=== PATIENT | male | born 1940 | race Caucasian/White ===

== ENCOUNTER 2021-05-28 15:22 | Inpatient (IN) | payer OTHER ==
--- OUTSIDE RECORDS SUMMARY | 2021-05-28 15:25 | XMS REPORT | Continuity of Care Document ---
:1940 Author Organization [facility] t Address [address] [place] [address] Care Team Providers Name Role Phone REMIGIO Attending Clinician Unavailable MD REMIGIO O. Attending Clinician Unavailable Attar Attending Clinician ATTAR Attending Clinician Unavailable Pob, Lab Main Attending Clinician Unavailable 2, Lab Attending Clinician Unavailable Doctor Unassigned, Name Attending Clinician Unavailable REMIGIO Admitting Clinician Unavailable MD REMIGIO O. Admitting Clinician Unavailable Payers Payer Name Policy Type Policy Number Effective Date Expiration Date Coni alcala [employer] MEDICARE [id number] 2016 COMPLETE 00:00:00 Problems This patient has no known problems. Allergies, Adverse Reactions, Alerts Allergy Allergy Status Severity Reaction(s) Onset Inactive Treating Comm ents Source Name Type Date Date Clinician NO KNOWN Drug Active Univers ALLERGIE Class ity of [facility] Social History Social Habit Start Date Stop Date Quantity Comments Source [facility] to [facility]2 [facility] sure [facility] Smoking Status Start Date Stop Date Source Unknown if ever smoked [facility] Medications This patient has no known medications. Procedures Procedure Date / Time Performed Performing Clinician Latonya e CT ABDOMEN WO 2020-03-18 21:29:29 Attscar [place] [facility] [place] CONTRAST [facility] Branch BASIC METABOLIC PANEL 2020-03-14 15:16:00 Pako [facility] (NA, K, CL, CO2, Medical Branch GLUCOSE, BUN, CREATININE, CA) N-TERMINAL PRO-BNP 2020-03-14 15:16:00 Pako [facility] PHYSICIAN ORDERS 2020-03-14 05:01:00 Doctor Unassigned, No Unive [facility] Branch PHYSICIAN ORDERS 2020-02-21 05:01:00 Doctor Unassigned, No Unive [facility] [place] Name Medical Branch Encounters Start End Encounter Admission Attending Care Care Encounter Source Date/Time Date/Time Type Type Clinicians Facility Department ID 2020-04-15 2020-04-28 Inpatient REMIGIO [facility] [id number] [address] [place] 00:00:00 00:00:00 LU 348 Method i 2020-03-20 2020-04-03 Inpatient REMIGIO [facility] [id number] [address] [place] 00:00:00 00:00:00 LU 676 Method i 2020-03-18 2020-03-18 Hospital Attar, [facility] [id number] Univers 15:13:38 23:59:00 Encounter Katie Dillard [id number] [id number] [id number] [address] 2020-03-18 2020-03-18 Outpatient R ATTAR, [facility] [id number] Univers 16:30:00 16:30:00 KATIE [id number] ity o f [facility] 2020-03-18 2020-03-18 Director Of Career Resources Pob, Adc Lab Main [facility] 1.2.8 40.114 [id number] Univers 15:03:59 15:18:59 Visit AttarKatie [id number] [id number] [phone] N[place] dical nal [address] [facility] 2020-03-18 2020-03-18 Outpatient R ATTAR, [facility] [id number] Univers 00:00:00 00:00:00 KATIE ity o f [facility] 2020-03-14 2020-03-14 Director Of Career Resources 2, Adc Lab [facility] [id number] Univers 10:07:56 10:22:56 Visit AttarKatie [id number] [facility] [id number] [phone] Nv dical nal 353 [facility] 2020-03-14 2020-03-[address] [facility] [id number] Univers 10:00:00 10:00:00 [id number] ity of [facility] 2020-03-14 2020-03-14 Outpatient R ATTAR, [facility] [id number] Univers 10:00:00 10:00:00 [facility] 2020-03-14 2020-03-14 Orders Doctor JORDAN [id number] Univers 00:00:00 00:00:00 Only Unassigned, HEATHER [id number] ity of [place] [facility] [id number] [place] [phone] [address] 2020-02-28 2020-02-28 Director Of Career Resources Pob, Adc Lab Main [facility] 1.2.8 40.114 [id number] Univers 14:45:58 15:00:58 Visit AttKatie abbott [id number] [id number] [phone] Nv dical nal [address] [place] [address] 2020-02-28 2020-02-[address] [facility] [id number] Univers 14:45:00 14:45:00 ity of [facility] 2020-02-28 2020-02-28 Outpatient R ATTAR, [facility] [id number] Univers 14:45:00 14:45:00 [facility] 2020-02-21 2020-02-21 Director Of Career Resources 2, Adc Lab GAM[facility] 1.2.840.114 [id number] Univers 14:47:55 15:02:55 Visit AttKatie abbott [id number] [id number] [phone] Nv dical nal [address] [place] [address] 2020-02-21 2020-02-21 Outpatient R ATTAR, [facility] [id number] Univers 15:00:00 15:00:00 KATIE ity o f [facility] 2020-02-21 2020-02-21 Orders Doctor ORTEGA 1.2.840.114 [id number] Univers 00:00:00 00:00:00 Only Unassigned, HEATHER [id number] ity of [place] [facility] [id number] [place] [phone] [facility] 009 Branch Results Test Description Test Time Test Comments Results Result Comments Source SARS-CoV-2 (COVID-19) RNA [Presence] in Respiratory sp ecimen by 2020-04-16 03:52:53 REGINA with probe detection Test Item Value Reference Range Interpretation Comme nts SARS-CoV-2 (COVID-19) RNA [Presence] in Respiratory Not detected No t-Detected specimen by REGINA with probe detection (test code = 86453-7) SARS-CoV-2 (COVID-19) RNA [Presence] in Respiratory specimen by REGINA with probe [id number] 00:06:57 Test Item Value Reference Range Interpretation Comments SARS-CoV-2 (COVID-19) RNA Not detected Not-Detected [Presence] in Respiratory specimen by REGINA with probe detection (test code = 97716-2) CT ABDOMEN WO [id number] 21:40:19CT Abdomen without contrast. CLINICAL HISTORY: Ascites. TECHNIQUE: Multidetector helical CT acquisition was obtained from the lungbases to the level of the iliac crests without oral and IV contrast. ?Theimages were reviewed in lung, bone, and soft tissue windows. FINDINGS: ?Absence of intravenous contrast limits evaluation of the solidorgans. Evaluation of the bowel is also limited by lack of oral contrast.Comparison is made with MRI study dated 04/05/2017. Lower lungs: Small bilateral pleural effusion as well as pleuralthickening, chronic pulmonary fibrosis and congestion in the right lowerlung. Moderate cardiomegaly. Short sliding hiatal hernia. No pericardialeffusion. Liver, Gallbladder and Spleen: The liver is approximately 15.2 cm in lengthand spleen is approximately 11.3 x 4.6 cm. Gallstones are seen without anyCT signs of acute cholecystitis. Peritoneum: Small amount of free fluid noted surrounding the liver, spleenand in both paracolic gutters. No lymphadenopathy. Pancreas and Adrenals:?Unremarkable pancreas and right adrenal gland. Leftadrenal gland hypertrophy noted. Kidneys and Ureters: Calcifications are seen both right and left renalartery branches. No visible calculi in the renal collecting systems. ?Nohydroureter or hydronephrosis. 3.2 cm cyst at the upper pole of the leftkidney, 1.5 cm cyst in the interpolar cortex of left kidney and 10 mm cystalong the lateral surface of the left kidney noted. 2 cysts are also seenin the lower pole of the right kidney, 12 mm or smaller insize. There isanother 14 mm Bosniak type II cystic lesion noted in the lower pole of theright kidney. Vessels: Advanced atherosclerosis, large abdominal aortic aneurysm withdirect intra-aortic stent extending from the aorta into common iliacarteries. Retroperitoneum: No abnormal fluid or lymphadenopathy. Bowel: Visualized large bowel loops showed diverticular disease without anyacute changes.Radiopaque material in the gastric chamber could be recently ingestedmedication. Radiopaque densities are also seen in the large bowel whichcould be residual contrast medium from prior CT studies done at an outs idefacility. Bones: Lumbar levoscoliosis with multilevel degenerative disc disease andfacet arthritis. Soft tissues: Fat-containing 2 cm size supraumbilical midline abdominalwall hernia without any apparent complications. CONCLUSION: 1. Small amount of ascites noted surrounding the liver, spleen, in theparacolic gutters with minimal bilateral pleural effusion and chronicbilateral pleural disease as well as pulmonary disease. The situs could bedue to liver disease and/or cardiac disease.2. Moderate cardiomegaly.3. Short sliding hiatal hernia.4. S/P AAA repair with intra-aortic stent.5. Diverticulosis of visualized segments of large bowel without any acutechanges.6. Gallstones without any CT signs of acute cholecystitis. [facility], Radiant Results Inft User - 03/18/2020 4:41 PM CDTCT Abdomen without contrast.CLINICAL HISTORY: Ascites.TECHNIQUE: Multidetector helical CT acquisition was obtained from the lungbases to the level of the iliac crests without oral and IV contrast. Theimages were reviewed in lung, bone, and soft tissue windows.FINDINGS: Absence of intravenous contrast limits evaluation of the solidorgans. Evaluation of the bowel is also limited by lack of oral contrast.Comparison is made with MRI study dated 04/05/2017. Lower lungs: Small bilateral pleural effusion as well as pleuralthickening, chronic pulmonary fibrosis and congestion in the right lowerlung. Moderate cardiomegaly.Short sliding hiatal hernia. No pericardialeffusion.Liver, Gallbladder and Spleen: The liver is approximately 15.2 cm in lengthand spleen is approximately 11.3 x 4.6 cm. Gallstones are seen without anyCT signs of acute cholecystitis.Peritoneum: Small amount of free fluid noted surrounding the liver, spleenand in both paracolic gutters. No lymphadenopathy.Pancreas and Adrenals: Unremarkable pancreas and right adrenal gland. Leftadrenal gland hypertrophy noted.Kidneys and Ureters: Calcifications are seen both right and left renalartery branches. No visible calculi in the renal collecting systems. Nohydroureter or hydronephrosis. 3.2 cm cyst at the upper pole of the leftkidney, 1.5 cm cyst in the interpolar cortex of left kidney and 10 mm cystalong the lateral surface of the left kidney noted. 2 cysts are also seenin the lower pole of the right kidney, 12 mm or smaller in size. There isanother 14mm Bosniak type II cystic lesion noted in the lower pole of theright kidney.Vessels: Advanced atheros clerosis, large abdominal aortic aneurysm withdirect intra-aortic stent extending from the aorta into common iliacarteries.Retroperitoneum: No abnormal fluid or lymphadenopathy.Bowel: Visualized large bowel loops showed diverticular disease without anyacute changes.Radiopaque material in the gastric chamber could be recently ingestedmedication. Radiopaque densities are also seen in the large bowel whichcould be residual contrast medium from prior CT studies done at an outsidefacility.Bones: Lumbar levoscoliosis with multilevel degenerative disc disease andfacet arthritis.Soft tissues: Fat-containing 2 cm size supraumbilical midline abdominalwall hernia without any apparent complications.CONCLUSION:1. Small amount of ascites noted surrounding the liver, spleen, in theparacolic gutters with minimalbilateral pleural effusion and chronicbilateral pleural disease as well as pulmonary disease. The situs could bedue to liver disease and/or cardiac disease.2. Moderate cardiomegaly.3. Short sliding hiatal hernia.4. S/P AAA repair with intra-aortic stent.5. Diverticulosis of visualized segments of large bowel without any acutechanges.6. Gallstones without any CT signs of acute cholecystitis.[facility] [id number] 17:35:00 Test Item Value Reference Range Interpretation Comments NT-proBNP (test code 85913 pg/mL See_Comment H [Autom ated = [id number]) message] The system which generated this result transmitted reference range : <=450. The reference range was not used to interpret this result as normal/abnormal . NICOLE (test code = NICOLE) Biotin has been reported to cause a negative bias, interpret results relative to patient's use of biotin. Lab Interpretation Abnormal (test code = 50602-9) [facility] METABOLIC PANEL (NA, K, CL, CO2, GLUCOSE, BUN, CREATININE, CA)2020-03-14 17:28:00 Test Item Value Reference Range Interpretation Comments NA (test code = 136 mmol/L 135-145 1587259202) K (test code = 4.7 mmol/L 3.5-5 3605412653) CL (test code = 99 mmol/L 98-108 8984428874) CO2 TOTAL (test code = 27 mmol/L 23-31 3725241928) AGAP (test code = 2-16 5580729639) BUN (test code = 54 mg/dL 7-23 H 6656681004) GLUCOSE (test code = 95 mg/dL 70-110 2893662427) CREATININE (test code = 2.03 mg/dL 0.6-1.25 H 0976432628) CALCIUM (test code = 9.0 mg/dL 8.6-10.6 8054911244) eGFR Calculation mL/min/1.73m2 (Non-) (test code = 3263834777) eGFR Calculation mL/min/1.73m2 () (test code = 4122342881) NICOLE (test code = NICOLE) Association of Glomerular Filtration Rate (GFR) and Staging of Kidney Disease* + --+ --+ ------+| GFR (mL/min/1.73 m2) ?| With Kidney Damage ?| ?Without Kidney Damage+ --------+ --------+ +| ?>90 ?| ?Stage one ?| ? Normal ?+ ---+ ---+ -------+| ?60-89 ?| ?Stage two ?| ? Decreased GFR ? + --+ --+ ------+| ?30-59 ?| ?Stage three ?| ? Stage three ? + --+ --+ ------+| ?15-29 ?| ?Stage four ? | ? Stage four ?+ ---+ ---+ -------+| ?<15 (or dialysis) ? ?| ?Stage five ? | ? Stage five ?+ ---+ ---+ -------+ *Each stage assumes the associated GFR level has been in effect for at least three months. ?Stages 1 to 5, with or without kidney disease, indicate chronic kidney disease. Notes: Determination of stages one and two (with eGFR >59mL/min/1.73 m2) requires estimation of kidney damage for at least three months as defined by structural or functional abnormalities of the kidney, manifested by either:Pathological abnormalities or Markers of kidney damage (including abnormalities in the composition of the blood or urine or abnormalities in imaging tests). Lab Interpretation Abnormal (test code = 99901-7) [facility]"
[2021-05-28] MEDS ORDERED: FENTANYL CITR 100 MCG/2 ML ONE (15:46)
[2021-05-28] MEDS ORDERED: ONDANSETRON 4 MG/2 ML VIAL ONE (15:47)
[2021-05-28 15:56] LABS: Absolute Lymphocytes (CBC) 1.1 K/uL (0.7-4.9); Lymphocytes % 15.8 % (15.3-44.8); MPV 8.3 fL (7.6-11.3); RBC Red Blood Cell Count 2.69 M/uL (4.33-5.43)
[2021-05-28 16:00] LABS: Protime INR 1.25
[2021-05-28 16:23] LABS: Albumin 2.1 g/dL (3.4-5.0); Bilirubin Direct 0.4 mg/dL (0-0.2); Bilirubin Total 0.8 mg/dL (0.2-1.0); Magnesium 2.8 mg/dL (1.8-2.4); Potassium 3.7 mmol/L (3.5-5.1); Protein, Total 6.9 g/dL (6.4-8.2); Troponin (Emerg Dept Use Only) 0.31 ng/mL (0.0-0.045)
--- NOTE | 2021-05-28 16:30 | RAD REPORT ---
EXAM DESCRIPTION: RAD - Chest Single View - 05/28/2021 3:59 pm CLINICAL HISTORY: CHEST PAIN COMPARISON: Portable chest October 2014 TECHNIQUE: AP portable chest image was obtained 05/28/2021 3:59 pm . FINDINGS: Interstitial markings are prominent throughout the lung cox increased from the prior st udy. This is in part due to shallow inspiration on the current examination. Trachea is midline. Head otomy wires are in place. Bilateral costophrenic angle blunting is present which may be portable jayson fact rather than significant pleural fluid. There is been substantial increase in the cardiac silhouette from prior imaging. Upper lobe vasculat ure is prominent. Size increase is most pronounced along the right side. This may be true chamber enl argement and/ or pericardial effusion. Mass lesion mimicking heart enlargement cannot be excluded. No pneumothorax. No acute bony abnormality seen. No acute aortic findings suspected. IMPRESSION: Cardiac silhouette is substantially larger than 2015 and there is increase in vasculatur e and lung markings. Pattern suggests a CHF/volume overload process. Substantial change in cardiac silhouette could be from chamber enlargement, pericardial effusion with mass lesion as a cause for the right-sided enlargement lesser in likelihood but not excluded.
[2021-05-28 16:51] LABS: SARS-COV-2 RT PCR NEGATIVE (NEGATIVE)
[2021-05-28] MEDS ORDERED: MORPHINE 2 MG/ML SYR ONE ×2 (16:59→22:23)
--- NOTE | 2021-05-28 17:16 | EDPHYS ---
Physician Documentation [facility] Name: Bhavin Mckeon Sr Age: 80 yrs Sex: Male : 1940 Arrival Date: 05/28/2021 Time: 15:23 Bed 15 Private MD: ED Physician Twila Hernandez HPI: 05/28 15:36 This 80 yrs old Male presents to ER via Unassigned with complaints of Chest Pain > 30 cp y/o. 15:36 The patient or guardian reports chest pain that is located primarily in the anterior cp chest wall. Onset: today. The chest pain is described as sharp. Duration: The patient or guardian reports a single episode, that is still ongoing. 15:36 Associated signs and symptoms: Pertinent positives: abdominal pain, cough, shortness of cp breath. 15:36 Family member reports patient has been taking Pepto for stomach pain and that patient cp is only taking aspirin and no blood thinner due to developing hematoma in the past as complication of taking blood thinner for chronic a-fib. Historical: - Allergies: 16:08 No Known Allergies; eo2 - Home Meds: 18:37 symbicort 160-4.5mcg/act inh twice a day [Active]; albuterol sulfate 90 mcg/actuation eo2 Inhl aebs 1 puff every 4 hours [Active]; levetiracetam 500 mg oral tab 1 tab 2 times per day [Active]; sildenafil 20mg oral 1 tab three times a day [Active]; allopurinol 300 mg Oral tab 1 tab once daily [Active]; torsemide 20 mg oral tab 2 tabs twice a day [Active]; pantoprazole 40 mg oral TbEC 1 tab 2 times per day [Active]; carvedilol 3.125 mg oral tab 1 tab 2 times per day [Active]; - PMHx: 16:08 Congestive heart failure; Chronic obstructive lung disease; Myocardial infarction; eo2 Pneumonia; Right hip hematoma; 18:37 Seizure; Gout; eo2 - Immunization history:: Adult Immunizations not up to date, Client reports having NOT received the Covid vaccine. - Social history:: Smoking status: Patient/guardian denies using tobacco, Patient/guardian denies using alcohol, street drugs. ROS: 15:40 Constitutional: Negative for body aches, chills, fever, poor PO intake. cp 15:40 Eyes: Negative for injury, pain, redness, and discharge. cp 15:40 ENT: Negative for ear pain, sore throat, difficulty swallowing, difficulty handling secretions. 15:40 Cardiovascular: Positive for chest pain. 15:40 Respiratory: Positive for cough, shortness of breath, at rest. Negative for wheezing. 15:40 Abdomen/GI: Negative for abdominal pain, vomiting, diarrhea, constipation. 15:40 Back: Negative for radiated pain. 15:40 Neuro: Negative for altered mental status, headache, syncope, weakness. 15:40 All other systems are negative. Exam: 15:36 ECG was reviewed by the Attending Physician. cp 15:43 Constitutional: The patient appears alert, awake, non-diaphoretic, non-toxic, well cp developed, frail, in obvious distress, mildly distressed. 15:43 Head/Face: Normocephalic, atraumatic. cp 15:43 Eyes: Periorbital structures: appear normal, Pupils: equal, round, and reactive to light and accomodation, Extraocular movements: intact throughout, Conjunctiva: normal, no exudate, no injection, Sclera: no appreciated abnormality, Lids and lashes: appear normal, bilaterally. 15:43 ENT: External ear(s): are unremarkable, Nose: is normal, Mouth: Lips: dry, Oral mucosa: dry, Posterior pharynx: Airway: no evidence of obstruction, patent. 15:43 Neck: ROM/movement: is normal, is supple, without pain, no range of motions limitations. 15:43 Chest/axilla: Inspection: normal. 15:43 Cardiovascular: Rate: tachycardic, Rhythm: irregular, Edema: is not appreciated, JVD: is not appreciated. 15:43 Respiratory: mild respiratory distress is noted, Respirations: intercostal retractions, are absent, shallow respirations, that is mild, Breath sounds: decreased breath sounds, that are mild, diffuse, stridor, is not appreciated, wheezing: is not appreciated. 15:43 Abdomen/GI: Inspection: abdomen appears normal, Bowel sounds: active, all quadrants, Palpation: soft, mild abdominal tenderness, in the epigastric area and left upper quadrant. 15:43 Skin: cellulitis, is not appreciated, no rash present. 15:43 Neuro: Orientation: to person, place \\T\\ time. Mentation: able to follow commands, slow to respond. 16:00 : Rectal exam: Stool: brown, soft, Guaiac testing: results were positive for occult cp blood. Vital Signs: 15:30 BP 112 / 81; Pulse 98; Resp 23; Temp 97.3; Pulse Ox 100% on 6 lpm NC; Weight 63.5 kg; eo2 Height 5 ft. 6 in. (167.64 cm); Pain 7/10; 16:08 BP 122 / 92; Pulse 104; Resp 24; Pulse Ox 100% ; eo2 16:58 Pain 7/10; eo2 17:00 BP 115 / 64; Pulse 108; Resp 22; Pulse Ox 100% ; Pain 6/10; eo2 17:42 Pain 6/10; eo2 18:00 BP 123 / 98; Pulse 115; Resp 24; Pulse Ox 100% ; eo2 21:05 BP 111 / 80; Pulse 95; Resp 18; Pulse Ox 96% on NC; ic1 15:30 Body Mass Index 22.60 (63.50 kg, 167.64 cm) eo2 MDM: 15:30 Patient medically screened. cp 16:00 Differential diagnosis: abnormal EKG, acute myocardial infarction, congestive heart cp failure gastritis, gastroesophageal reflux disease (GERD), peptic ulcer disease, pericarditis, pleurisy, pneumonia, pneumothorax, stable angina, unstable angina, gastric bleed. 17:00 Data reviewed: vital signs, nurses notes, lab test result(s), EKG, radiologic studies, cp plain films. 17:00 Test interpretation: by ED physician or midlevel provider: ECG, plain radiologic cp studies. Physician consultation: Jerry Goodman DO was contacted at 16:55, regarding admission, to the telemetry unit. patient's condition, and will see patient in ED, shortly. 05/28 15:30 Order name: Basic Metabolic Panel cp 05/28 15:30 Order name: CBC with Diff cp 05/28 15:30 Order name: LFT's; Complete Time: 16:55 cp 05/28 16:29 Interpretation: Normal except: ALK 146; BILID 0.4; ALB 2.1; GLOB 4.8; A/G 0.4. cp 05/28 15:30 Order name: Magnesium; Complete Time: 16:55 cp 05/28 15:30 Order name: NT PRO-BNP; Complete Time: 16:55 cp 05/28 15:30 Order name: PT-INR; Complete Time: 16:19 cp 05/28 15:30 Order name: Troponin (emerg Dept Use Only); Complete Time: 16:55 cp 05/28 16:29 Interpretation: Abnormal: TROPED 0.31. cp 05/28 15:30 Order name: COVID-19/FLU A+B (Document "Date of Onset" if Symptomatic); Complete Time: cp 16:55 05/28 15:30 Order name: Urine Microscopic Only cp 05/28 15:30 Order name: Lipase; Complete Time: 16:55 cp 05/28 15:31 Order name: Basic Metabolic Panel; Complete Time: 16:55 EDAL 05/28 16:30 Interpretation: Normal except: CL 95; CO2 37; GLUC 191; BUN 48; CRE 1.57; GFR 43. cp 05/28 15:31 Order name: CBC with Automated Diff; Complete Time: 19:05 [facility] 05/28 16:19 Interpretation: Normal except: RBC 2.69; HGB 8.5; HCT 27.0; MCV 100.2; MCHC 31.6; RDW cp 20.6; LAYLA% 73.8. 05/28 17:50 Order name: CBC Smear Scan; Complete Time: 19:05 EDAL 05/28 20:47 Order name: Urine Dipstick-Ancillary EDAL 05/28 15:30 Order name: XRAY Chest (1 view); Complete Time: 16:37 cp 05/28 15:30 Order name: EKG; Complete Time: 15:31 cp 05/28 15:30 Order name: Cardiac monitoring; Complete Time: 15:58 cp 05/28 15:30 Order name: EKG - Nurse/Tech; Complete Time: 15:58 cp 05/28 15:30 Order name: IV Saline Lock; Complete Time: 15:58 cp 05/28 15:30 Order name: Labs collected and sent; Complete Time: 15:58 cp 05/28 15:30 Order name: O2 Per Protocol; Complete Time: 15:58 cp 05/28 15:30 Order name: O2 Sat Monitoring; Complete Time: 15:58 cp 05/28 15:30 Order name: Urine Dipstick-Ancillary (obtain specimen); Complete Time: 20:47 cp 05/28 17:42 Order name: Social Service Consult EDMS EC:36 Rate is 124 beats/min. Rhythm is irregular. QRS interval is normal. QT interval is cp normal. Interpreted by me. Reviewed by me. Administered Medications: 15:58 Drug: fentaNYL (PF) 25 mcg Route: IVP; Site: right antecubital; eo2 16:58 Follow up: Pain 7/10 Adult; Response: Pain is unchanged, physician notified eo2 15:58 Drug: Zofran (Ondansetron) 4 mg Route: IVP; Site: right antecubital; eo2 16:58 Follow up: Response: No adverse reaction eo2 16:59 Drug: morphine 2 mg Route: IVP; Site: right antecubital; eo2 17:42 Follow up: Pain 6/10 Adult; Response: Pain is decreased eo2 17:42 Drug: Lasix (furosemide) 40 mg Route: IVP; Site: right antecubital; eo2 18:29 Follow up: Response: No adverse reaction eo2 18:37 Drug: ProTONIX (pantoprazole) 40 mg Route: IVP; Site: right antecubital; eo2 18:56 Follow up: Response: No adverse reaction eo2 21:35 Drug: carvedilol 3.125 mg Route: PO; ic1 22:26 Drug: morphine 2 mg Route: IVP; Rate: bolus; Infused Over: 2 mins; Site: right forearm; ic1 Disposition Summary: 05/28/21 17:15 Hospitalization Ordered Hospitalization Status: Inpatient Admission cp Provider: Jerry Goodman cp [facility] cp Condition: Stable cp Problem: new cp Symptoms: have improved cp Bed/Room Type: Standard cp Room Assignment: 201(05/29/21 01:28) cg Diagnosis - Unspecified combined systolic (congestive) and diastolic (congestive) heart failure cp - Subsequent non-ST elevation (NSTEMI) myocardial infarction cp Forms: - Medication Reconciliation Form cp - SBAR form cp Signatures: Dispatcher [employer] EDMS Jose Wayne PA PA cp Garcia, Cindy, RN RN cg Owoade, Eunice, RN RN eo2 Nataliia Plaza RN RN ic1 Corrections: (The following items were deleted from the chart) 16:09 16:08 PMHx: None; eo2 eo2 16:08 PMHx: Seizure; eo2 eo2 05/29 01:28 05/28 17:15 cp cg 05/30 01:19 05/28 15:43 Abdomen/GI: Inspection: abdomen appears normal, Bowel sounds: active, all cp quadrants, Palpation: abdomen is soft and non-tender, in all quadrants, cp
--- NOTE | 2021-05-28 17:16 | ER ---
Nurse's Notes [facility] Name: Bhavin Mckeon Sr Age: 80 yrs Sex: Male : 1940 Arrival Date: 05/28/2021 Time: 15:23 Bed 15 Private MD: Diagnosis: Unspecified combined systolic (congestive) and diastolic (congestive) heart failure;Subsequent non-ST elevation (NSTEMI) myocardial infarction Presentation: 05/28 15:23 Chief complaint: Patient states: chest pain that began this morning. Coronavirus ss screen: Client denies travel out of the [place] in the last 14 days. Ebola Screen: Patient denies exposure to infectious person. Patient denies travel to an Ebola-affected area in the 21 days before illness onset. Initial Sepsis Screen: Does the patient meet any 2 criteria? No. Patient's initial sepsis screen is negative. Does the patient have a suspected source of infection? No. Patient's initial sepsis screen is negative. Risk Assessment: Do you want to hurt yourself or someone else? Patient reports no desire to harm self or others. Onset of symptoms was May 28, 2021. 15:23 Method Of Arrival: EMS: [facility] ss 15:23 Acuity: JACI 3 ss Historical: - Allergies: 16:08 No Known Allergies; eo2 - Home Meds: 18:37 symbicort 160-4.5mcg/act inh twice a day [Active]; albuterol sulfate 90 mcg/actuation eo2 Inhl aebs 1 puff every 4 hours [Active]; levetiracetam 500 mg oral tab 1 tab 2 times per day [Active]; sildenafil 20mg oral 1 tab three times a day [Active]; allopurinol 300 mg Oral tab 1 tab once daily [Active]; torsemide 20 mg oral tab 2 tabs twice a day [Active]; pantoprazole 40 mg oral TbEC 1 tab 2 times per day [Active]; carvedilol 3.125 mg oral tab 1 tab 2 times per day [Active]; - PMHx: 16:08 Congestive heart failure; Chronic obstructive lung disease; Myocardial infarction; eo2 Pneumonia; Right hip hematoma; 18:37 Seizure; Gout; eo2 - Immunization history:: Adult Immunizations not up to date, Client reports having NOT received the Covid vaccine. - Social history:: Smoking status: Patient/guardian denies using tobacco, Patient/guardian denies using alcohol, street drugs. Screenin:08 Abuse screen: Denies threats or abuse. Denies injuries from another. Nutritional eo2 screening: No deficits noted. Tuberculosis screening: No symptoms or risk factors identified. Fall Risk Ambulatory Aid- None/Bed Rest/Nurse Assist (0 pts). Gait- Impaired (20 pts.). Assessment: 16:04 General: Appears uncomfortable, unkempt, Behavior is cooperative. Pain: Complains of eo2 pain in mid chest pain Pain does not radiate. Pain began this morning per at bedside. Neuro: Level of Consciousness is awake, alert, obeys commands, Oriented to person, place, situation. Cardiovascular: Reports chest pain, shortness of breath, Patient's skin is warm and dry. Rhythm is atrial fibrillation Chest pain. Respiratory: Reports shortness of breath labored breathing chronic Airway is patent Respiratory effort is labored, Respiratory pattern is symmetrical, Breath sounds with rhonchi. : Parent/caregiver report the patient having continent of urine per , does BM in diaper due to inability to move. Musculoskeletal: Parent/caregiver report the patient having weakness in RLE due to right hip hematoma. 18:43 Reassessment: Pt reporting heart burn, Jose UMANZOR made aware. eo2 22:28 [facility]ass[facility]: [facility]. ic1 05/29 03:25 Reassessment: Pt transported to unit via stretcher. Report called to receiving nurse. ic1 Vital Signs: 05/28 15:30 BP 112 / 81; Pulse 98; Resp 23; Temp 97.3; Pulse Ox 100% on 6 lpm NC; Weight 63.5 kg; eo2 Height 5 ft. 6 in. (167.64 cm); Pain 7/10; 16:08 BP 122 / 92; Pulse 104; Resp 24; Pulse Ox 100% ; eo2 16:58 Pain 7/10; eo2 17:00 BP 115 / 64; Pulse 108; Resp 22; Pulse Ox 100% ; Pain 6/10; eo2 17:42 Pain 6/10; eo2 18:00 BP 123 / 98; Pulse 115; Resp 24; Pulse Ox 100% ; eo2 21:05 BP 111 / 80; Pulse 95; Resp 18; Pulse Ox 96% on NC; ic1 15:30 Body Mass Index 22.60 (63.50 kg, 167.64 cm) eo2 Vitals: 16:08 Cardiac Rhythm Assessment Irregular Atrial fibrillation. eo2 ED Course: 15:23 Patient arrived in ED. ss 15:28 Patient has correct armband on for positive identification. Placed in gown. Bed in low mh5 position. Call light in reach. Side rails up X2. Warm blanket given. configuration management specialist on. Pulse ox on. NIBP on. 15:29 Jose Wayne PA is PHCP. cp 15:29 Twila Hernandez MD is Attending Physician. cp 15:38 Laure Simmons, PETER is Primary Nurse. eo2 15:53 Triage completed. ss 15:59 XRAY Chest (1 view) In Process Unspecified. EDMS 15:59 COVID-19/FLU A+B (Document "Date of Onset" if Symptomatic) Sent. eo2 16:08 No provider procedures requiring assistance completed. Inserted saline lock: 20 gauge eo2 in right antecubital area, using aseptic technique. Oxygen administration via nasal cannula \\T\\ 5L/min. 16:11 Arm band placed on. eo2 17:14 Jerry Goodman DO is Hospitalizing Provider. cp 19:12 Report given to Nataliia GREEN. eo2 20:47 Urine Microscopic Only Sent. ic1 Administered Medications: 15:58 Drug: fentaNYL (PF) 25 mcg Route: IVP; Site: right antecubital; eo2 16:58 Follow up: Pain 7/10 Adult; Response: Pain is unchanged, physician notified eo2 15:58 Drug: Zofran (Ondansetron) 4 mg Route: IVP; Site: right antecubital; eo2 16:58 Follow up: Response: No adverse reaction eo2 16:59 Drug: morphine 2 mg Route: IVP; Site: right antecubital; eo2 17:42 Follow up: Pain 6/10 Adult; Response: Pain is decreased eo2 17:42 Drug: Lasix (furosemide) 40 mg Route: IVP; Site: right antecubital; eo2 18:29 Follow up: Response: No adverse reaction eo2 18:37 Drug: ProTONIX (pantoprazole) 40 mg Route: IVP; Site: right antecubital; eo2 18:56 Follow up: Response: No adverse reaction eo2 21:35 Drug: carvedilol 3.125 mg Route: PO; ic1 22:26 Drug: morphine 2 mg Route: IVP; Rate: bolus; Infused Over: 2 mins; Site: right forearm; ic1 Outcome: 17:15 Decision to Hospitalize by Provider. sergei 05/29 03:50 Patient left the ED. ic1 Signatures: Dispatcher [employer] EDLillian Salgado RN RN Jose Wayne PA PA Arielle García [facility] Laure Simmons RN RN eo2 Nataliia Plaza RN RN ic1 Corrections: (The following items were deleted from the chart) 05/28 16:09 16:08 PMHx: None; eo2 eo2 16:09 16:08 PMHx: Seizure; eo2 eo2
[2021-05-28] MEDS ORDERED: FUROSEMIDE 40 MG/4 ML VIAL ONE (17:30)
--- NOTE | 2021-05-28 17:39 | P.HP ---
Certification for Inpatient Patient admitted to: Inpatient With expected LOS: >2 Midnights Patient will require the following post-hospital care: Home Health Services Practitioner: I am a practitioner with admitting privileges, knowledge of patient current condition, hospital course, and medical plan of care. Services: Services provided to patient in accordance with Admission requirements found in Title 42 Section 412.3 of the Code of Federal Regulations Patient History Date of Service: 05/28/21 Primary Care Provider: None; Cardiology-Dr. Min Reason for admission: chest pain and shortness of breath History of Present Illness: 80-year-old male with history of chronic atrial fibrillation not on chronic anticoagulation therapy, diastolic CHF, COPD on chronic oxygen, peripheral vascular disease, CAD with prior CABG, hypertension, seizure disorder, history of CVA, history of peripheral vascular disease and carotid arterial disease. Patient presented with chest pain and shortness of breath that started this morning. Chest pain was mainly to the center of the chest. He rated the pain about a 10 out of 10. Shortness of breath was also noted. Patient uses home oxygen. He thought this was more GI related he took some Pepto-Bismol. Chest pain persisted and shortness of breath persisted. Denies any fever, chills. Came to the ER for further evaluation. In the ER patient was evaluated. Hemoglobin 8.5, white count 6.7. Sodium 140, potassium 3.7. BUN of 48, creatinine 1.53 with GFR 43. Glucose 191. Troponin 0.31. BNP elevated. Chest x-ray shows COPD changes. Patient given IV Lasix in the emergency room. Patient admitted for further evaluation and treatment. Allergies clopidogrel bisulfate [From Plavix] Allergy (Verified 10/29/14 09:58) Unknown Home medications list reviewed: Yes Home Medications: Aspirin [Low Dose Aspirin EC] 81 mg PO DAILY 10/28/14 Furosemide [Lasix*] 40 mg PO DAILY 10/28/14 Levetiracetam 1,000 mg PO Q12HR 10/28/14 Omeprazole [Prilosec] 40 mg PO DAILY 10/28/14 Pravastatin [Pravachol*] 80 mg PO DAILY 10/28/14 allopurinoL [Zyloprim*] 300 mg PO DAILY 10/28/14 carvediloL [Coreg*] 12.5 mg PO BIDWM 10/28/14 levoFLOXacin [Levaquin] 500 mg PO DAILY #7 tab 11/02/14 predniSONE [Deltasone*] 10 mg PO BID #20 tab 11/02/14 - Past Medical/Surgical History Diabetic: No -: History of CVA -: COPD on chronic oxygen -: Diastolic CHF -: Gout -: Hyperlipidemia -: Carotid arterial disease with prior surgery -: CAD with prior CABG -: Hyperlipidemia -: Hypertension -: GERD -: Peripheral vascular disease -: Seizure disorder -: CABG x2 vessel -: Spinal surgery -: Hernia repair -: Abdominal aortic aneurysm repair -: Bilateral carotid enterectomy Psychosocial/ Personal History: 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 Uses diapers - Family History Family History: Reviewed- Non-Contributory - Social History Smoking Status: Former smoker Alcohol use: No CD- Drugs: No Caffeine use: Yes Place of Residence: Home Review of Systems General: As per HPI Eyes: Unremarkable ENT: Unremarkable Respiratory: Shortness of Breath, SOB with Excertion, As per HPI Cardiovascular: Chest Pain, As per HPI Gastrointestinal: Unremarkable Genitourinary: Unremarkable Musculoskeletal: Unremarkable Integumentary: Unremarkable Neurological: Unremarkable Lymphatics: Unremarkable Physical Examination - Studies Laboratory Data (last 24 hrs) 05/28/21 15:42: PT 14.4 H, INR 1.25 05/28/21 15:42: WBC 6.70, Hgb 8.5 L, Hct 27.0 L, Plt Count 204 05/28/21 15:42: Sodium 140, Potassium 3.7, BUN 48 H, Creatinine 1.57 H, Glucose 191 H, Magnesium 2.8 H, Total Bilirubin 0.8, AST 16, ALT 16, Alkaline Phosphatase 146 H, Lipase 114 Assessment and Plan - Plan COVID: Negative Influenza: Negative Chest x-ray: COMPARISON: Portable chest October 2014 TECHNIQUE: AP portable chest image was obtained 05/28/2021 3:59 pm . FINDINGS: Interstitial markings are prominent throughout the lung cox increased from the prior study. This is in part due to shallow inspiration on the current examination. Trachea is midline. Sternotomy wires are in place. Bilateral costophrenic angle blunting is present which may be portable artifact rather than significant pleural fluid. There is been substantial increase in the cardiac silhouette from prior imaging. Upper lobe vasculature is prominent. Size increase is most pronounced along the right side. This may be true chamber enlargement and/ or pericardial effusion. Mass lesion mimicking heart enlargement cannot be excluded. No pneumothorax. No acute bony abnormality seen. No acute aortic findings suspected. IMPRESSION: Cardiac silhouette is substantially larger than 2015 and there is increase in vasculature and lung markings. Pattern suggests a CHF/volume overload process. Substantial change in cardiac silhouette could be from chamber enlargement, pericardial effusion with mass lesion as a cause for the right-sided enlargement lesser in likelihood but not excluded. Physical Exam: GENERAL: The patient is a well-developed, well-nourished, in no apparent distress. Alert and oriented x3. VITAL SIGNS: Reviewed HEENT: Head is normocephalic and atraumatic. Extraocular muscles are intact. Pupils are equal, round, and reactive to light and accommodation. Nares appeared normal. Mouth is well hydrated and without lesions. Mucous membranes are moist. NECK: Supple. No carotid bruits. No lymphadenopathy or thyromegaly. LUNGS: Decreased bilateral. Some wheezing. Currently on 4 L per nasal cannula HEART: A. fib rate controlled ABDOMEN: Soft, nontender, and nondistended. Positive bowel sounds. No hepatosplenomegaly was noted. EXTREMITIES: Muscle wasting to the upper and lower extremity. NEUROLOGIC: The patient is oriented to person, place and time. Strength and sensation are grossly intact. Face is symmetric. SKIN: Muscle wasting noted. Impression: Chest pain, shortness of breath with elevated troponin likely ischemic demand likely related to acute on chronic diastolic CHF and COPD exacerbation on chronic oxygen CAD with prior CABG Peripheral vascular disease/carotid arterial disease with prior carotid enterectomy Hyperlipidemia Hypertension Chronic atrial fibrillation not on chronic anticoagulation therapy GERD Seizure disorder History of CVA History of hematoma Anemia chronic disease Plan: Chest pain, shortness of breath with elevated troponin likely ischemic demand likely related to acute on chronic diastolic CHF and COPD exacerbation on chronic oxygen: Patient will be admitted for further evaluation and treatment. Troponin elevated likely ischemic demand from acute on chronic diastolic CHF and COPD exacerbation. We will continue to monitor telemetry and cardiac enzymes. Will consult cardiology for further recommendation. Will provide DVT prophylaxis Heparin for now. If cardiac enzymes continue to be elevated consider switching to heparin for [place] protocol. Will order echocardiogram. Recheck chest x-ray. Lasix 40 mg 3 times a day IV to be started. Patient takes torsemide 40 mg twice daily and Viagra 20 mg 3 times a day. May need to continue this at discharge. Continue COPD treatment including Solu-Medrol, Brovana, Xopenex and Atrovent. Await further recommendations from cardiology. CAD with prior CABG: Continue aspirin. Continue with above plan of care. Peripheral vascular disease/carotid arterial disease with prior carotid enterectomy: Continue aspirin. Hyperlipidemia: Patient takes pravastatin 80 mg daily. Continue statin medication. Will check fasting lipid panel. Hypertension: Continue carvedilol 3.25 mg 1 pill twice daily. Will monitor and adjust appropriately. Chronic atrial fibrillation not on chronic anticoagulation therapy: Continue aspirin. Patient not on chronic anticoagulation therapy due to history of hematomas in the past. We will continue with heparin DVT prophylaxis GERD: Continue Protonix Seizure disorder: Continue Keppra 500 mg 1 pill twice daily History of CVA: Continue aspirin and statin medication History of hematoma: Continue with above plan of care Anemia chronic disease: We will check iron and B12 studies. Maintain hemoglobin above 7.5. Code Status: Patient is DNR DVT prophylaxis: Heparin Advanced Care Planning-30 minutes: Home at discharge likely with home health and physical therapy. Discharge Plan: Home Plan to discharge in: 72 Hours - Advance Directives Does patient have a Living Will: No Does patient have a Durable POA for Healthcare: Yes - Code Status/Comfort Care Code Status Assessed: Yes (Patient is DNR) Time Spent Managing Pts Care (In Minutes): 55
[2021-05-28 17:49] LABS: Anisocytosis 1+; Blood Morphology Comment NOTED (NOT SEEN); Platelet Estimate ADEQ; White Blood Cell Scan OK (OK)
[2021-05-28] MEDS ORDERED: PANTOPRAZOLE 40 MG INJ ONE (18:35)
[2021-05-28 20:47] LABS: Urine Blood Trace-intact (Negative); Urine Glucose Negative (Negative); Urine Protein 2+ (Negative); Urine Specific Gravity 1.025 (1.005-1.030); Urine pH 5.5 (5.0-7.0)
[2021-05-28 21:02] LABS: Urine Bacteria >50 /HPF (NONE SEEN); Urine Mucus 1+ /HPF (NONE SEEN)
[2021-05-28] MEDS ORDERED: carvediloL 6.25 MG TAB ONE (21:31)
[2021-05-28 22:14] VITALS: BMI 22.4
[2021-05-29] MEDS: ASPIRIN EC 81 MG TAB PO SCH ×2 (03:47→10:30)
[2021-05-29] MEDS ORDERED: FUROSEMIDE 40 MG/4 ML VIAL IV SCH (03:47)
[2021-05-29] MEDS: carvediloL 3.125 MG TAB PO SCH ×2 (03:47→05:43)
[2021-05-29] MEDS ORDERED: LEVALBUTEROL 0.63 MG/3 ML NEB NEB PRN (03:47)
[2021-05-29] MEDS ORDERED: ONDANSETRON 4 MG/2 ML VIAL IV PRN (03:47)
[2021-05-29] MEDS: levETIRAcetam 500 MG TAB PO SCH ×2 (03:47→10:30)
[2021-05-29] MEDS ORDERED: ARFORMOTEROL TARTRATE 15 MCG/2 ML VIAL.NEB NEB SCH (03:47)
[2021-05-29] MEDS ORDERED: ATORVASTATIN 10 MG TAB PO SCH (03:47)
[2021-05-29] MEDS: METHYLPREDNISOLONE 40 MG INJ IV SCH ×2 (03:47→10:10)
[2021-05-29] MEDS: HEPARIN 5000 UNIT/ML 1 ML VIAL SQ SCH ×2 (03:47→10:30)
[2021-05-29] MEDS ORDERED: ACETAMINOPHEN 500 MG TAB PO PRN (03:47)
[2021-05-29] MEDS ORDERED: IPRATROPIUM BROM 0.5MG/2.5ML NEB PRN (03:47)
[2021-05-29 04:30] VITALS: O2SAT 98
--- NOTE | 2021-05-29 05:44 | P.PN ---
Subjective Date of Service: 05/29/21 Primary Care Provider: None; Cardiology-Dr. Min Chief Complaint: chest pain and shortness of breath Subjective: Improving, Doing well Physical Examination - Vital Signs Temperature: 97.6 F Blood Pressure: 182/80 Pulse: 94 Respirations: 17 Pulse Ox (%): 94 - Studies Laboratory Data (last 24 hrs) 05/28/21 15:42: PT 14.4 H, INR 1.25 05/28/21 15:42: WBC 6.70, Hgb 8.5 L, Hct 27.0 L, Plt Count 204 05/28/21 15:42: Sodium 140, Potassium 3.7, BUN 48 H, Creatinine 1.57 H, Glucose 191 H, Magnesium 2.8 H, Total Bilirubin 0.8, AST 16, ALT 16, Alkaline Phosphatase 146 H, Lipase 114 Assessment & Plan Discharge Plan: Home Plan to discharge in: 24 Hours Physician Review Additional Text: COVID: Negative Influenza: Negative Chest x-ray: COMPARISON: Portable chest October 2014 TECHNIQUE: AP portable chest image was obtained 05/28/2021 3:59 pm . FINDINGS: Interstitial markings are prominent throughout the lung cox increased from the prior study. This is in part due to shallow inspiration on the current examination. Trachea is midline. Sternotomy wires are in place. Bilateral costophrenic angle blunting is present which may be portable artifact rather than significant pleural fluid. There is been substantial increase in the cardiac silhouette from prior imaging. Upper lobe vasculature is prominent. Size increase is most pronounced along the right side. This may be true chamber enlargement and/ or pericardial effusion. Mass lesion mimicking heart enlargement cannot be excluded. No pneumothorax. No acute bony abnormality seen. No acute aortic findings suspected. IMPRESSION: Cardiac silhouette is substantially larger than 2015 and there is increase in vasculature and lung markings. Pattern suggests a CHF/volume overload process. Substantial change in cardiac silhouette could be from chamber enlargement, pericardial effusion with mass lesion as a cause for the right-sided enlargement lesser in likelihood but not excluded. Follow up CXR: COMPARISON: Portable May 28, portable October 2014 TECHNIQUE: AP portable chest image was obtained 05/29/2021 5:07 am . FINDINGS: Lung volumes are reduced compared to the May 28 examination. Lung parenchymal opacification pattern is not clearly different. Bilateral costophrenic angle blunting is present in the patient likely has small bilateral pleural effusions. Large cardiac silhouette is again identified. Findings are not as prominent along the right heart border. This is possibly partial resolution of atelectasis. Findings are less concerning for a mass along the right heart border. This can be monitored as the patient continues to improve. Prominent upper lobe vasculature is still present. No pneumothorax. Sternotomy wires are in place. No acute bony abnormality seen. No acute aortic findings suspected. IMPRESSION: CHF/volume overload findings remain. Bilateral pleural effusions are present. Enlarged cardiac silhouette may be fractionally improved. Overall increased opacification along the right heart border can be monitored over the course of hospitalization. Current findings are less concerning for a mass. Physical Exam: GENERAL: The patient is a well-developed, well-nourished, in no apparent distress. Alert and oriented x3. VITAL SIGNS: Reviewed HEENT: Neck supple LUNGS: Better air movement bilateral. Currently on 3 L per nasal cannula HEART: A. fib rate controlled ABDOMEN: Soft, nontender, and nondistended. Positive bowel sounds. No hepatosplenomegaly was noted. EXTREMITIES: Muscle wasting to the upper and lower extremity. NEUROLOGIC: The patient is oriented to person, place and time. Strength and sensation are grossly intact. Face is symmetric. SKIN: Muscle wasting noted. Impression: Chest pain, shortness of breath with elevated troponin likely ischemic demand related to acute on chronic diastolic CHF, pulmonary hypertension, chronic pleural effusion, and COPD exacerbation on chronic oxygen CAD with prior CABG Peripheral vascular disease/carotid arterial disease with prior carotid enterectomy Hyperlipidemia Hypertension Chronic atrial fibrillation not on chronic anticoagulation therapy GERD Seizure disorder History of CVA History of hematoma Anemia chronic disease Plan: Chest pain, shortness of breath with elevated troponin likely ischemic demand related to acute on chronic diastolic CHF, pulmonary hypertension, chronic pleural effusion, and COPD exacerbation on chronic oxygen: Patient much improved. Patient doing well with IV diuretic therapy and Solu-Medrol. Case discussed with cardiology. No intervention required. Patient much improved. Patient normally uses 5 to 6 L per nasal cannula. Now down to 3 L per nasal cannula. We will plan for discharge today. Will increase his torsemide to 60 mg 1 pill twice daily. Continue prednisone taper. Continue with his medication for COPD and CHF. Continue home oxygen to maintain sats above 93%. Patient may continue with his Viagra 20 mg 1 pill 3 times a day. Recommend follow-up with pulmonology to further address his pulmonary hypertension. Follow-up with cardiology in 1 week. Recheck chest x-ray in 2 to 4 weeks. Discussed plan of care with patient and . CAD with prior CABG: Continue aspirin. Continue with above plan of care. Peripheral vascular disease/carotid arterial disease with prior carotid enterectomy: Continue aspirin. Hyperlipidemia: Patient takes pravastatin 80 mg daily. Continue statin medicat ion. Will check fasting lipid panel. Hypertension: Continue carvedilol 3.25 mg 1 pill twice daily. Will monitor and adjust appropriately. Chronic atrial fibrillation not on chronic anticoagulation therapy: Continue aspirin. Patient not on chronic anticoagulation therapy due to history of hematomas in the past. We will continue with heparin DVT prophylaxis GERD: Continue Protonix Seizure disorder: Continue Keppra 500 mg 1 pill twice daily History of CVA: Continue aspirin and statin medication History of hematoma: Continue with above plan of care Anemia chronic disease with iron deficiency: Overall stable. Continue iron supplementation at discharge. Patient would benefit with GI evaluation as an outpatient. Code Status: Patient is DNR DVT prophylaxis: Heparin Advanced Care Planning-30 minutes: Home with home health and physical therapy at discharge Time Spent Managing Pts Care (In Minutes): 55
[2021-05-29 05:53] LABS: Absolute Lymphocytes (CBC) 1.2 K/uL (0.7-4.9); Hematocrit 26.3 % (39.6-49.0); Lymphocytes % 19.6 % (15.3-44.8); MPV 8.4 fL (7.6-11.3); RBC Red Blood Cell Count 2.63 M/uL (4.33-5.43)
[2021-05-29] MEDS ORDERED: carvediloL 6.25 MG TAB PO SCH (06:00)
[2021-05-29 06:04] LABS: CKMB Creatine Kinase MB 1.5 ng/mL (1.0-3.6); Troponin I 0.32 ng/mL (0.0-0.045)
[2021-05-29 06:19] LABS: Ferritin 594.8 ng/mL (26-388); Magnesium 2.6 mg/dL (1.8-2.4); Potassium 3.8 mmol/L (3.5-5.1)
[2021-05-29 06:24] LABS: Thyroid Stimulating Hormone 6.17 uIU/mL (0.360-3.740)
[2021-05-29] MEDS ORDERED: PANTOPRAZOLE 40MG TABLET PO SCH ×2 (06:30→21:00)
--- NOTE | 2021-05-29 07:27 | RAD REPORT ---
EXAM DESCRIPTION: RAD - Chest Single View - 05/29/2021 5:07 am CLINICAL HISTORY: CHF/COPD COMPARISON: Portable May 28, portable October 2014 TECHNIQUE: AP portable chest image was obtained 05/29/2021 5:07 am . FINDINGS: Lung volumes are reduced compared to the May 28 examination. Lung parenchymal opacifica tion pattern is not clearly different. Bilateral costophrenic angle blunting is present in the patien t likely has small bilateral pleural effusions. Large cardiac silhouette is again identified. Findings are not as prominent along the right heart marvin rder. This is possibly partial resolution of atelectasis. Findings are less concerning for a mass tamiko ng the right heart border. This can be monitored as the patient continues to improve. Prominent upper lobe vasculature is still present. No pneumothorax. Sternotomy wires are in place. No acute bony abnormality seen. No acute aortic find ings suspected. IMPRESSION: CHF/volume overload findings remain. Bilateral pleural effusions are present. Enlarged cardiac silhouette may be fractionally improved. Overall increased opacification along the r ight heart border can be monitored over the course of hospitalization. Current findings are less conc erning for a mass.
[2021-05-29] MEDS ORDERED: FUROSEMIDE 40 MG TABLET PO SCH (09:00)
[2021-05-29] MEDS ORDERED: allopurinoL 300 MG TAB PO SCH (09:00)
--- NOTE | 2021-05-29 10:05 | EKG ---
Test Date: 2021-05-28 Test Time: 15:29:31 Watch Repair Technician: MEASUREMENT RESULTS: Intervals: Rate: 124 CT: QRSD: 90 QT: 324 QTc: 465 [place]: P: CT: QRS: 101 T: 214 INTERPRETIVE STATEMENTS: Atrial fibrillation with rapid ventricular response with premature ventricular or aberrantly conducted complexes Rightward axis Septal infarct, age undetermined ST & T wave abnormality, consider inferior ischemia Abnormal ECG Compared to ECG 10/28/2014 16:10:46 Ventricular premature complex(es) now present Right-axis deviation now present Myocardial infarct finding now present ST (T wave) deviation now present Possible ischemia now present Sinus rhythm no longer present T-wave abnormality no longer present Electronically Signed On 05-29-21 10:04:29 TRAUMA PROGRAM MANAGER by Christian Boland
--- NOTE | 2021-05-29 10:22 | P.DS ---
Admission Date: 05/28/21 Discharge Date: 05/29/21 Primary Care Provider: None; Cardiology-Dr. Min Disposition: DC HOME/HOME HEALTH CARE Discharge Condition: GOOD Reason for Admission: chest pain and shortness of breath Consultations: Cardiology-Dr. Boland Procedures: COVID: Negative Influenza: Negative Chest x-ray: COMPARISON: Portable chest October 2014 TECHNIQUE: AP portable chest image was obtained 05/28/2021 3:59 pm . FINDINGS: Interstitial markings are prominent throughout the lung cox incre ased from the prior study. This is in part due to shallow inspiration on the current examination. Trachea is midline. Sternotomy wires are in place. Bilateral costophrenic angle blunting is present which may be portable artifact rather than significant pleural fluid. There is been substantial increase in the cardiac silhouette from prior imaging. Upper lobe vasculature is prominent. Size increase is most pronounced along the right side. This may be true chamber enlargement and/ or pericardial effusion. Mass lesion mimicking heart enlargement cannot be excluded. No pneumothorax. No acute bony abnormality seen. No acute aortic findings suspected. IMPRESSION: Cardiac silhouette is substantially larger than 2015 and there is increase in vasculature and lung markings. Pattern suggests a CHF/volume overload process. Substantial change in cardiac silhouette could be from chamber enlargement, pericardial effusion with mass lesion as a cause for the right-sided enlargement lesser in likelihood but not excluded. Follow up CXR: COMPARISON: Portable May 28, portable October 2014 TECHNIQUE: AP portable chest image was obtained 05/29/2021 5:07 am . FINDINGS: Lung volumes are reduced compared to the May 28 examination. Lung parenchymal opacification pattern is not clearly different. Bilateral costophrenic angle blunting is present in the patient likely has small bilateral pleural effusions. Large cardiac silhouette is again identified. Findings are not as prominent along the right heart border. This is possibly partial resolution of atelectasis. Findings are less concerning for a mass along the right heart border. This can be monitored as the patient continues to improve. Prominent upper lobe vasculature is still present. No pneumothorax. Sternotomy wires are in place. No acute bony abnormality seen. No acute aortic findings suspected. IMPRESSION: CHF/volume overload findings remain. Bilateral pleural effusions are present. Enlarged cardiac silhouette may be fractionally improved. Overall increased opacification along the right heart border can be monitored over the course of hospitalization. Current findings are less concerning for a mass. Medical Problem List: Chest pain, shortness of breath with elevated troponin likely ischemic demand related to acute on chronic diastolic CHF, pulmonary arterial hypertension, bilateral pleural effusion, and COPD exacerbation on chronic oxygen CAD with prior CABG Peripheral vascular disease/carotid arterial disease with prior carotid enterectomy Hyperlipidemia Hypertension Chronic atrial fibrillation not on chronic anticoagulation therapy GERD Seizure disorder History of CVA History of hematoma Anemia chronic disease Brief History of Present Illness: 80-year-old male with history of chronic atrial fibrillation not on chronic anticoagulation therapy, diastolic CHF, COPD on chronic oxygen, peripheral vascular disease, CAD with prior CABG, hypertension, seizure disorder, history of CVA, history of peripheral vascular disease and carotid arterial disease. Patient presented with chest pain and shortness of breath that started this morning. Chest pain was mainly to the center of the chest. He rated the pain about a 10 out of 10. Shortness of breath was also noted. Patient uses home oxygen. He thought this was more GI related he took some Pepto-Bismol. Chest pain persisted and shortness of breath persisted. Denies any fever, chills. Came to the ER for further evaluation. In the ER patient was evaluated. Hemoglobin 8.5, white count 6.7. Sodium 140, potassium 3.7. BUN of 48, creatinine 1.53 with GFR 43. Glucose 191. Troponin 0.31. BNP elevated. Chest x-ray shows COPD changes. Patient given IV Lasix in the emergency room. Patient admitted for further evaluation and treatment. Hospital Course: Patient presented with chest pain, shortness of breath with elevated troponin. This was likely related to ischemic demand secondary to acute on chronic diastolic CHF, pulmonary arterial hypertension and COPD exacerbation. Bilateral pleural effusions noted. Patient on chronic oxygen typically 5 to 6 L/min. Patient was admitted. Diuretic therapy provided along with IV Solu-Medrol. Patient has improved. Patient without significant chest pain or shortness of breath. Patient down to 3 L per nasal cannula. Patient evaluated by cardiology. No intervention required. Chest x-ray shows improvement. At discharge medications have been adjusted. Will increase torsemide at discharge. At discharge recommend to continue 1500 cc/day fluid restriction and low-salt diet. Recommend to monitor his weight daily. If his weight increases by more than 5 pounds further adjustment in medication may be required. At discharge he will continue with torsemide 60 mg 1 pill twice daily and Viagra 20 mg 1 pill 3 times a day. Recommend to recheck labBMP in 1 week to monitor his progress. Further adjustment in medication can be done by his PCP or cardiology. Recommend follow-up with cardiology in 1 week to follow-up his hospitalization. Recommend recheck chest x-ray in 2 to 4 weeks to monitor resolution. Patient plans to follow-up with pulmonology as an outpatient to further address his pulmonary hypertension. Education on CHF, pleural effusion and pulmonary hypertension provided. For his COPD, patient has significantly improved. Patient received IV Solu- Medrol. At discharge patient will continue with prednisone 10 mg 1 pill twice daily for 7 days then 1 pill once daily for 7 days. At discharge the patient will continue with his current medications of Symbicort 2 puffs twice daily and Xopenex 1 puff 3 times a day as needed for shortness of breath. Patient will continue with home oxygen. Patient currently on 3 L per nasal cannula. Recommend follow-up with pulmonology to further monitor and adjust medication. Patient with CAD and prior CABG. At discharge patient will continue with aspirin 81 mg daily. Patient with underlying peripheral vascular disease and carotid arterial disease with prior carotid enterectomy. At discharge patient will continue with aspirin 80 mg daily. Patient with hyperlipidemia. At discharge patient will continue with pravastatin 80 mg daily. Recommend recheck fasting lipid panel and CMP in [facility] to monitor his progress. Patient with hypertension. Overall stable. At discharge patient will continue with his current medication carvedilol 3.125 mg 1 pill twice daily. Recommend to maintain blood pressure less than 130/80. Further adjustment can be done by his PCP. Patient with chronic atrial fibrillation not on chronic anticoagulation therapy due to history of hematomas in the past. Patient with atrial fibrillation rate controlled. At discharge patient will continue with aspirin 81 mg daily. Patient will continue with carvedilol for rate control. Follow-up with cardiology to further monitor and adjust. Patient with GERD. Patient will continue with his current medication of Protonix 40 mg 1 pill twice daily. Patient may require GI evaluation as an outpatient to further monitor and adjust. Patient with history of seizure disorder. At discharge patient will continue with Keppra 500 mg 1 pill twice daily. Patient with history of CVA. Patient will continue with above medications. Patient with anemia of chronic disease. Iron deficiency noted. At discharge patient will continue with iron supplementation 325 mg 1 pill twice daily along with stool softener docusate 100 mg daily. Recommend to recheck labCBC in 1 to 2 weeks to monitor his progress. Patient may require GI evaluation if this persists. Advance care directives addressed in detail. Patient DNR. Prior to discharge home health and physical therapy arranged prior to discharge. Vital Signs/Physical Exam: Temp Pulse Resp BP Pulse Ox 97.6 F 94 H 17 182/80 H 94 05/29/21 10:20 05/29/21 10:20 05/29/21 10:20 05/29/21 10:20 05/29/21 10:20 General: Alert, In no apparent distress, Oriented x3, Cooperative HEENT: Atraumatic Neck: Supple Respiratory: Other (Better air movement bilateral. Currently on 3 L per nasal cannula) Cardiovascular: Other (A. fib rate controlled) Gastrointestinal: Normal bowel sounds, No ascites, No tenderness, No masses, No rebound, No guarding Integumentary: Other (Muscle atrophy to the upper and lower extremities. Good range of motion.) Neurological: Normal speech, Normal strength at 5/5 x4 extr, Normal tone Laboratory Data at Discharge: WBC 5.90 K/uL (4.3-10.9) 05/29/21 05:12 Hgb 8.2 g/dL (13.6-17.9) L 05/29/21 05:12 Hct 26.3 % (39.6-49.0) L 05/29/21 05:12 Plt Count 153 K/uL (152-406) D 05/29/21 05:12 PT 14.4 SECONDS (9.5-12.5) H 05/28/21 15:42 INR 1.25 05/28/21 15:42 Sodium 141 mmol/L (136-145) 05/29/21 05:12 Potassium 3.8 mmol/L (3.5-5.1) 05/29/21 05:12 BUN 53 mg/dL (7-18) H 05/29/21 05:12 Creatinine 1.64 mg/dL (0.55-1.3) H 05/29/21 05:12 Glucose 123 mg/dL (74-106) H 05/29/21 05:12 Magnesium 2.6 mg/dL (1.8-2.4) H 05/29/21 05:12 Total Bilirubin 0.8 mg/dL (0.2-1.0) 05/28/21 15:42 AST 16 U/L (15-37) 05/28/21 15:42 ALT 16 U/L (12-78) 05/28/21 15:42 Alkaline Phosphatase 146 U/L (45-117) H 05/28/21 15:42 Troponin I 0.32 ng/mL (0.0-0.045) H 05/29/21 05:12 Triglycerides 73 mg/dL (<150) 05/29/21 05:12 Cholesterol 84 mg/dL (<200) 05/29/21 05:12 HDL Cholesterol 32 mg/dL (40-60) L 05/29/21 05:12 Cholesterol/HDL Ratio 2.63 05/29/21 05:12 Lipase 114 U/L (73-393) 05/28/21 15:42 Home Medications: Aspirin [Low Dose Aspirin EC] 81 mg PO DAILY 10/28/14 Pravastatin [Pravachol*] 80 mg PO DAILY 10/28/14 allopurinoL [Zyloprim*] 300 mg PO DAILY 10/28/14 Budesonide/Formoterol Fumarate [Symbicort 160-4.5 Mcg Inhaler] 2 puff IH BID #1 hfa.aer.ad 05/29/21 Docusate [Colace Cap*] 100 mg PO DAILY #30 cap 05/29/21 Ferrous Sulfate [Iron] 325 mg PO BID #60 tablet 05/29/21 Levalbuterol Tartrate [Xopenex Hfa] 1 puff IH TID PRN #1 hfa.aer.ad 05/29/21 Pantoprazole [Protonix Tab*] 40 mg PO BID tab 05/29/21 Torsemide [Demadex*] 60 mg PO BID #180 tab 05/29/21 carvediloL [Coreg*] 3.125 mg PO BID 6AM 6PM #60 tab 05/29/21 levETIRAcetam [Keppra*] 500 mg PO BID tab 05/29/21 predniSONE [Deltasone*] 10 mg PO SEECOM #21 tab 05/29/21 New Medications: Docusate [Colace Cap*] 100 mg PO DAILY #30 cap carvediloL [Coreg*] 3.125 mg PO BID 6AM 6PM #60 tab predniSONE [Deltasone*] 10 mg PO SEECOM #21 tab Torsemide [Demadex*] 60 mg PO BID #180 tab Ferrous Sulfate [Iron] 325 mg PO BID #60 tablet Budesonide/Formoterol Fumarate [Symbicort 160-4.5 Mcg Inhaler] 2 puff IH BID #1 hfa.aer.ad Levalbuterol Tartrate [Xopenex Hfa] 1 puff IH TID PRN #1 hfa.aer.ad PRN Reason: Shortness Of Breath Physician Discharge Instructions: Patient presented with chest pain, shortness of breath with elevated troponin. This was likely related to ischemic demand secondary to acute on chronic diastolic CHF, pulmonary arterial hypertension and COPD exacerbation. Bilateral pleural effusions noted. Patient on chronic oxygen typically 5 to 6 L/min. Patient was admitted. Diuretic therapy provided along with IV Solu-Medrol. Patient has improved. Patient without significant chest pain or shortness of breath. Patient down to 3 L per nasal cannula. Patient evaluated by cardiology. No intervention required. Chest x-ray shows improvement. At discharge medications have been adjusted. Will increase torsemide at discharge. At discharge recommend to continue 1500 cc/day fluid restriction and low-salt diet. Recommend to monitor his weight daily. If his weight increases by more than 5 pounds further adjustment in medication may be required. At discharge he will continue with torsemide 60 mg 1 pill twice daily and Viagra 20 mg 1 pill 3 times a day. Recommend to recheck labBMP in 1 week to monitor his progress. Further adjustment in medication can be done by his PCP or cardiology. Recommend follow-up with cardiology in 1 week to follow-up his hospitalization. Recommend recheck chest x-ray in 2 to 4 weeks to monitor resolution. Patient plans to follow-up with pulmonology as an outpatient to further address his pulmonary hypertension. Education on CHF, pleural effusion and pulmonary hypertension provided. For his COPD, patient has significantly improved. Patient received IV Solu- Medrol. At discharge patient will continue with prednisone 10 mg 1 pill twice daily for 7 days then 1 pill once daily for 7 days. At discharge the patient will continue with his current medications of Symbicort 2 puffs twice daily and Xopenex 1 puff 3 times a day as needed for shortness of breath. Patient will continue with home oxygen. Patient currently on 3 L per nasal cannula. Recommend follow-up with pulmonology to further monitor and adjust medication. Patient with CAD and prior CABG. At discharge patient will continue with aspirin 81 mg daily. Patient with underlying peripheral vascular disease and carotid arterial disease with prior carotid enterectomy. At discharge patient will continue with aspirin 80 mg daily. Patient with hyperlipidemia. At discharge patient will continue with pravastatin 80 mg daily. Recommend recheck fasting lipid panel and CMP in 1 month to monitor his progress. Patient with hypertension. Overall stable. At discharge patient will continue with his current medication carvedilol 3.125 mg 1 pill twice daily. Recommend to maintain blood pressure less than 130/80. Further adjustment can be done by his PCP. Patient with chronic atrial fibrillation not on chronic anticoagulation therapy due to history of hematomas in the past. Patient with atrial fibrillation rate controlled. At discharge patient will continue with aspirin 81 mg daily. Patient will continue with carvedilol for rate control. Follow-up with cardiology to further monitor and adjust. Patient with GERD. Patient will continue with his current medication of Protonix 40 mg 1 pill twice daily. Patient may require GI evaluation as an outpatient to further monitor and adjust. Patient with history of seizure disorder. At discharge patient will continue with Keppra 500 mg 1 pill twice daily. Patient with history of CVA. Patient will continue with above medications. Patient with anemia of chronic disease. Iron deficiency noted. At discharge patient will continue with iron supplementation 325 mg 1 pill twice daily along with stool softener docusate 100 mg daily. Recommend to recheck labCBC in 1 to 2 weeks to monitor his progress. Patient may require GI evaluation if this persists. Advance care directives addressed in detail. Patient DNR. Prior to discharge home health and physical therapy arranged prior to discharge. Diet: AHA Activity: Fall precautions Followup: KIARRA MIN [Primary Care Provider] - Time spent managing pt's care (in minutes): 55
[2021-05-29 11:02] LABS: CKMB Creatine Kinase MB 1.6 ng/mL (1.0-3.6)
[2021-05-29 12:55] VITALS: BP 103/61; TEMP 97
[2021-05-29] MEDS ORDERED: carvediloL 3.125 MG TAB PO ONE (14:01)
[2021-05-29] MEDS ORDERED: FAMOTIDINE 20 MG TAB PO ONE (14:35)
--- NOTE | 2021-05-29 14:43 | ECHO ---
HEIGHT: 5 ft 6 in WEIGHT: 139 lb 0 oz DATE OF STUDY: 05/29/[address]: Jerry Goodman DO 2-DIMENSIONAL: YES M.MODE: YES DOPPLER: YES COLOR FLOW: YES TDS: NO PORTABLE: NO DEFINITY: NO BUBBLE STUDY: NO DIAGNOSIS: ELEVATED TROPONIN, DIASTOLIC CONGESTIVE HEART FAILURE, CORONARY ARTERY DISEASE CARDIAC HISTORY: CATHERIZATION: YES SURGERY: YES PROSTHETIC VALVE: NO PACEMAKER: NO MEASUREMENTS (cm) DIASTOLIC (NORMALS) SYSTOLIC (NORMALS) IVSd 0.9 (0.6-1.2) LA Diam 4.2 (1.9-4.0) LVEF 17% LVIDd 5.2 (3.5-5.7) LVIDs 4.8 (2.0-3.5) %FS 8% LVPWd 0.9 (0.6-1.2) Ao Diam 2.4 (2.0-3.7) 2 DIMENSIONAL ASSESSMENT: RIGHT ATRIUM: LEFT ATRIUM: RIGHT VENTRICLE: LEFT VENTRICLE: TRICUSPID VALVE: MITRAL VALVE: PULMONIC VALVE: AORTIC VALVE: PERICARDIAL EFFUSION: AORTIC ROOT: LEFT VENTRICULAR WALL MOTION: DOPPLER/COLOR FLOW: MILD TRICUSPID REGURGITATION - MODERATE PULMONARY HYPERTENSION. MODERATE TO SEVERE MITRAL REGURGITATION. COMMENTS: SEVERE GLOBAL HYPOKINESIS. EJECTION FRACTION 17%. LEFT ATRIAL ENLARGEMENT, RIGHT ATRIAL ENLARGEMENT, MILD TO SEVERE MITRAL REGURGITATION. TECHNOLOGIST: BRENTON DIALLO
[2021-05-29] MEDS ORDERED: carvediloL 3.125 MG TAB PO SCH (18:00)
--- NOTE | 2021-05-30 16:57 | CON ---
Date of Consultation: 05/29/2021 Reason For Consultation: Elevated troponin and chest pain. History Of Present Illness: Mr. 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 He came in with shortness of breath that is presumab ly secondary to COPD exacerbation. He has improved dramatically after inhalers. He has had a [place] 0.[place] [address]. His creatinine is 1.64. Hemoglobin was 8.2. Allergies: NONE. Review of Systems: Negative. Social History: Negative. Family History: Negative. Medications: At home include inhalers, allopurinol, Demadex, and Protonix. Physical Examination: General: He was in atrial fibrillation with rapid ventricular response. Vital Signs: His vital signs were otherwise stable. He was afebrile. He was asymptomatic. Chest: Clear. Cardiac: Revealed atrial fibrillation. Neck: Supple without any bruit, lymphadenopathy, JVD, or thyromegaly. Abdomen: Benign. Extremities: Revealed no clubbing, cyanosis, or edema. Diagnostic Data: As stated earlier. EKG showed atrial fibrillation. Impression And Plan: 1.Atrial fibrillation, probably chronic rapid ventricular response. 2.Elevated troponin and BNP secondary to chronic systolic congestive heart failure and demand ischem ia. 3.Chronic obstructive pulmonary disease exacerbation. 4.Seizure. 5.Gout. 6.Coronary artery disease, status post coronary artery bypass graft. I agree with his present regim en. He is a do not resuscitate. I do not think we need to do anything aggressive. He is a patient of Dr. Min and he will follow up with him in the near future, but I will discuss the case with Dr. Goodman regarding his atrial fibrillation. He may be a candidate for a low dose beta-fidel and had at least aspirin if not another anticoagulant. I would like to note that he did have an echocardiogr am while he was in the hospital and showed a low ejection fraction. No thrombus. I will make sure h e gets copies of his records to take to Dr. Min. He did have moderate to severe mitral regurgitati on as well. FANI/MODL Voice ID: [id number] Report ID: [id number]
== END 2021-05-29 14:58 | disposition home health service (06) | DRG 291 ==
LOC: ER 15:22 → ERHOLD 17:44 → 2ND 05-29 02:35
PROVIDERS: ADMIT Family Medicine; ATTEND Family Medicine
DX: I11.0 Hypertensive heart disease with heart failure (principal); I50.33 Acute on chronic diastolic (congestive) heart failure; I48.20 Chronic atrial fibrillation, unspecified; J44.1 Chronic obstructive pulmonary disease with (acute) exacerbation; I24.8 Other forms of acute ischemic heart disease; I27.21 Secondary pulmonary arterial hypertension; I25.10 Atherosclerotic heart disease of native coronary artery without angina pectoris; K21.9 Gastro-esophageal reflux disease without esophagitis; E78.5 Hyperlipidemia, unspecified; I73.9 Peripheral vascular disease, unspecified; D63.8 Anemia in other chronic diseases classified elsewhere; I77.9 Disorder of arteries and arterioles, unspecified; D50.9 Iron deficiency anemia, unspecified; M10.9 Gout, unspecified; I25.2 Old myocardial infarction; Z79.51 Long term (current) use of inhaled steroids; Z79.899 Other long term (current) drug therapy; Z99.81 Dependence on supplemental oxygen; Z95.1 Presence of aortocoronary bypass graft; Z86.73 Personal history of transient ischemic attack (TIA), and cerebral infarction without residual deficits; Z79.82 Long term (current) use of aspirin; Z88.8 Allergy status to other drugs, medicaments and biological substances; Z66 Do not resuscitate; Z79.52 Long term (current) use of systemic steroids; Z87.891 Personal history of nicotine dependence; Z74.01 Bed confinement status; Z20.822 Contact with and (suspected) exposure to COVID-19
CPT/HCPCS: 0240U; 36415; 71045; 80048; 80061; 80076; 81003; 81015; 82550; 82553; 82607; 82728; 83540; 83690; 83735; 83880; 84439; 84443; 84466; 84484; 85025; 85610; 87077; 87086; 87088; 87186; 93005; 93306; 94640; 99285; C9113; J1644; J1940; J2270; J2405; J2920; J3010; J7605

== ENCOUNTER 2022-06-20 14:39 | Inpatient (IN) | payer OTHER ==
--- OUTSIDE RECORDS SUMMARY | 2022-06-20 14:43 | XMS REPORT | Continuity of Care Document ---
:1940 Author Organization [facility] t Address [address] [place] [address] Care Team Providers Name Role Phone Tenisha Plata MD Primary Care Physician [phone] LU FLOOD Attending Clinician Unavailable MD LU FLOOD Attending Clinician Unavailable Katie Ortiz MD Attending Clinician Pob, [facility] Main Attending Clinician Unavailable KATIE ORTIZ Attending Clinician Unavailable 2, [facility] Attending Clinician Unavailable Doctor Unassigned, [place] Attending Clinician Unavailable LU FLOOD Admitting Clinician Unavailable MD LU FLOOD Admitting Clinician Unavailable Payers Payer Name Policy Type Policy Number Effective Date Expiration Date Coni alcala A[employer] MEDICARE [id number] 2016 COMPLETE 00:00:00 Problems Condition Condition Condition Status Onset Resolution Last Treating Co mments Source Name Details Category Date Date Treatment Clinician Date Heart Heart Disease Active 2019-05 [facility] failure failure 2-07 st 00:00: Hospita 00 l CHF CHF Disease Active 2019-05 [facility] (congestiv (congestiv 1-12 st e heart e heart 00:00: Hospita failure) failure) 00 l Acute on Acute on Disease Active 2019-05 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 00:00: Ho spita heart heart 00 l failure failure Other Other Disease Active [facility] ascites ascites 2-12 st 00:00: Hospita 00 l Acute on Acute on Disease Active 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 00:00: 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 Coronary Coronary Disease Active Metho di artery artery 2-12 st disease disease 00:00: Hospita involving involving 00 l enterprise enterprise coronary coronary artery artery Essential Essential Disease Active Met hodi hypertensi hypertensi 2-12 st on on 00:00: Hospita 00 l COPD COPD Disease Active [facility] (chronic (chronic 2-12 st obstructiv obstructiv 00:00: Ho spita e e 00 l pulmonary pulmonary disease) disease) Pulmonary Pulmonary Disease Active Met hodi hypertensi hypertensi 2-12 st on on 00:00: Hospita 00 l Right Right Disease Active [facility] inguinal inguinal 918 st hernia hernia 00:00: Hospita 00 l Allergies, Adverse Reactions, Alerts Allergy Allergy Status Severity Reaction(s) Onset Inactive Treating Comm ents Source Name Type Date Date Clinician Clopidog Propensjg Active Other (See DOUBLE Me thodi rel ty to Comments) 02-[address] adverse 00:00: Hospita reaction 00 l s to drug NO KNOWN Drug Active [facility] ALLERGIE Class ity of S [facility] Social History Social Habit Start Date Stop Date Quantity Comments Source History of tobacco Current smoker [facility] use Hospital Exposure to Not sure [facility] SARS-CoV-2 (event) [facility] Alcohol intake 2020-03-20 2020-03-20 Current [facility] 00:00:00 00:00:00 non-drinker of Hospital alcohol (finding) Cigarettes smoked 2017-02-07 2017-02-[address] current (pack per 00:00:00 00:00:00 Hospita l day) - Reported Cigarette 2017-02-07 2017-02-07 [facility] pack-years 00:00:00 00:00:00 Hospital Tobacco use and 2017-02-07 2017-02-07 Smokeless [facility] exposure 00:00:00 00:00:00 tobacco non-user Hospital Sex Assigned At [birth year] [facility] 00:00:00 00:00:00 Hospital Smoking Status Start Date Stop Date Source [facility] Ex-smoker 2017-02-07 00:00:00 2017-02-07 00:00:00 [facility] Medications Ordered Filled Start Stop Current Ordering Indication Dosage Frequency Signature Comments Components Source Medication Medication Date Date Medication? Clinician (SIG) Name Name sildenafil 2019-05 Yes 20mg Q.[id number] Take 20 mg [facility] (REVATIO) 2-07 [id number] by mouth 3 st 20 mg 16:47: 3D (three) Hospita tablet 47 times a l day. pravastatin 2019-05 Yes 80mg QD Take 80 mg [facility] (PRAVACHOL) 2-[address] 80 MG 16:47: nightly. Hospita tablet 47 l budesonide- 2019-05 Yes 2{puff} Q.5D Inhale 2 [facility] formoterol 2-[address] (SYMBICORT) 16:47: (two) Hospi ta 160-4.5 47 times a l mcg/actuati day. on inhaler albuterol 2019-05 Yes 2{puff} Q6H Inhale 2 M ethodi (PROAIR 2-[address] HFA,PROVENT 16:47: every 6 Hos [place] 47 (six) l HFA,VENTOLI hours as N HFA) 90 needed mcg/actuati (COPD). on inhaler aspirin 2019-05 Yes 81mg QD Take 81 mg Meth rea (ECOTRIN) 2-[address] 81 MG 16:47: daily. Hospita enteric 47 l coated tablet ascorbic 2019-05 Yes 1{tbl} QD Take 1 Metho di acid 2-[address] (VITAMIN C 16:47: mouth Hospit a ORAL) 47 daily. l carvediloL 2019-05 Yes 3.125mg Q.5D Take 3.125 Methodi (COREG) 2-[address] 3.125 MG 16:47: mouth 2 Hospit a tablet 47 (two) l times a day with meals. docusate 2019-05 Yes 100mg Q.5D Take 100 Meth rea sodium 2-[address] (COLACE) 16:47: mouth 2 Hospit a 100 MG 47 (two) l capsule times a day. polyethylen 2019-05 Yes 17g QD Take 17 g M ethodi e glycol 2-[address] (MIRALAX) 16:47: daily. Hospit a 17 gram 47 l packet calcium 2019-05 Yes 500mg Q.[id number] Chew 1 M ethodi carbonate 2-[id number] (TUMS) 200 00:00: 3D (500 mg [facility] mg calcium 00 total) 3 l (500 mg) (three) chewable times a tablet day. Immunizations Ordered Immunization Filled Immunization Date Status Commen ts Source Name Name FLUZONE HIGH-DOSE PF 2020-04-28 Completed Meth odist 00:00:00 Hospital Pneumococcal 2017-07-04 Completed [facility] Polysaccharide 00:00:00 [facility] FLUCELVAX QUAD PF 2017-07-[address] 00:00:00 Hospital Procedures Procedure Date / Time Performed Performing Clinician Sourc e CT ABDOMEN WO 2020-03-18 21:29:29 Attar, [facility] o f [facility] Branch BASIC METABOLIC PANEL 2020-03-14 15:16:00 Attricardo, [facility] (NA, K, CL, CO2, Medical Branch GLUCOSE, BUN, CREATININE, CA) N-TERMINAL PRO-BNP 2020-03-14 15:16:00 Attricardo [facility] PHYSICIAN ORDERS 2020-03-14 05:01:00 [facility] 2020-02-21 05:01:00 [facility] Plan of Care Planned Activity Planned Date Details Comments Source Future Scheduled 2022-06-20 COVID-19 VACCINE (#1) [facility] Test 14:42:26 [code = COVID-19 VACCINE (#1)] Future Scheduled 2022-06-20 SHINGLES VACCINES (1 Met [facility] Test 14:42:26 of 2) [code = SHINGLES VACCINES (1 of 2)] Future Scheduled 2022-06-20 65+ [facility]OCOCC[address] [facility] Test 14:42:26 VACCINE (2 - PCV) [code = 65+ PNEUMOCOCCAL VACCINE (2 - PCV)] Future Scheduled 2022-06-20 INFLUENZA VACCINE [facility] Hospital Test 14:42:26 [code = INFLUENZA VACCINE] Encounters Start End Encounter Admission Attending Care Care Encounter Source Date/Time Date/Time Type Type Clinicians Facility Department ID 2020-04-15 2020-04-28 [id number] [place] 00:00:00 00:00:00 LU [address] 2020-03-20 2020-04-03 Inpatient REMIGIO [facility] [id number] [place] 00:00:00 00:00:00 LU [address] 2020-03-18 2020-03-18 Hospital Attar, [facility] [id number] Univers 15:13:38 23:59:00 Encounter Katie Dillard [id number] [id number] [id number] [facility] 801 Branch 2020-03-18 2020-03-18 Commercial Pilot Jermain, [facility] Main [facility] 1.2.8 40.114 [id number] Univers 15:03:59 15:18:59 Visit AttarKatie [id number] [id number] [phone] Ri dic[address] 2020-03-18 2020-03-18 Outpatient R ATTAR, [facility] [id number] Univers 00:00:00 00:00:00 KATIE gee o gurjit [facility] 2020-03-14 2020-03-14 Commercial Pilot 2, Adc Lab [facility] [id number] Univers 10:07:56 10:22:56 Visit AttricardoKatie [id number] [id number] [phone] [address] 2020-03-14 2020-03-14 Outpatient R ATTAR, [facility] [id number] Univers 10:00:00 10:00:00 KATIE gee o f [facility] 2020-03-14 2020-03-14 Orders Doctor JORDAN [id number] Univers 00:00:00 00:00:00 Only Unassigned, HEATHER [id number] ity of [place] [facility] [id number] [place] [id number] [facility] 009 Branch 2020-02-28 2020-02-28 Commercial Pilot Jermain, [facility] Main [facility] 1.2.8 40.114 [id number] Univers 14:45:58 15:00:58 Visit AttarKatie [id number] [id number] [phone] Ri dical nal [address] [facility] 2020-02-28 2020-02-28 Outpatient R ATTRICARDO [facility] [id number] Univers 14:45:00 14:45:00 KATIE ity o f [facility] 2020-02-21 2020-02-21 Commercial Pilot 2, Adc Lab [facility] [id number] Univers 14:47:55 15:02:55 Visit AttarKatieton [id number] [id number] [phone] Ri dical nal 353 [facility] 2020-02-21 2020-02-21 Outpatient R ATTAR, [facility] [id number] Univers 15:00:00 15:00:00 KATIE marlen o f [facility] 2020-02-21 2020-02-21 Orders Doctor ORTEGA [id number] Univers 00:00:00 00:00:00 Only Unassigned, HEATHER [id number] ity of [place] [facility] 4.2.7.2.686 [place] [phone] [address] Results Test Description Test Time Test Comments Results Result Comments Source SARS-CoV-2 (COVID-19) RNA [Presence] in Respiratory sp ecimen by 2020-04-16 03:52:53 REGINA with probe detection Test Item Value Reference Range Interpretation Comme nts SARS-CoV-2 (COVID-19) RNA [Presence] in Respiratory Not detected No t-Detected specimen by REGINA with probe detection (test code = 06309-1) JOSELYN DODSONRS-CoV-2 (COVID-19) RNA [Presence] in Respiratory specimen by REGINA with probe [id number] 00:06:57 Test Item Value Reference Range Interpretation Comments SARS-CoV-2 (COVID-19) RNA Not detected Not-Detected [Presence] in Respiratory specimen by REGINA with probe detection (test code = 35939-1) JOSELYN VILLATOROCT ABDOMEN WO [id number] 21:40:19CT Abdomen without contrast. CLINICAL HISTORY: Ascites. TECHNIQUE: Multidetector helical CT acquisition was obtained from the lungbases to the level of the iliac crests without oral and IV contrast. ?Theimages were reviewed in lung, bone, and soft tissue windows. FINDINGS: ?Absence of intravenous contrast limits evaluation of the solidorgans. Evaluation of the bowel is also limited by lack of oral con trast.Comparison is made with MRI study dated 04/05/2017. [...] from prior CT studies done at an outsidefacility. Bones: Lumbar levoscoliosis with multilevel degenerative disc [...] Moderate cardiomegaly. Short sliding hiatal hernia. No pericardialeffusion.Liver, Gallbladder and [...] the leftkidney, 1.5 cm cyst in the interpolarcortex of left kidney and 10 mm cystalong the lateral surface of the left kidney noted. 2 cysts are a lso seenin the lower pole of the right kidney, 12 mm or smaller in size. There isanother 14 mm Bosniak type II cystic lesion noted in the lower pole of theright kidney.Vessels: Advanced atherosclerosis, large abdominal aortic aneurysm withdirect intra-aortic stent extending from the aorta into common i liacarteries.Retroperitoneum: No abnormal fluid or lymphadenopathy.Bowel: Visualized large [...] midline abdominalwall hernia without any apparent complications.CONCLUSION:1. Smallamount of ascites noted surrounding the liver, spleen, in theparacolic gutters with minimal bilateral pleural effusion and chronicbilateral pleural disease as well as pulmonary disease. The situs couldbedue to liver disease and/or cardiac disease.2. Moderate cardiomegaly.3. Short sliding hiatal hernia .4. S/P AAA repair with intra-aortic stent.5. Diverticulosis of visualized segments of large bowel without any acutechanges.6. Gallstones without any CT signs of acute cholecystitis.[id number] 17:35:00 Test Item Value Reference Range Interpretation Comments NT-proBNP (test code 59347 pg/mL See_Comment H [Autom ated = [id number]) message] The system which generated this result transmitted reference range : <=450. The reference range was not used to interpret this result as normal/abnormal . NICOLE (test code = NICOLE) Biotin has been reported to cause a negative bias, interpret results relative to patient's use of biotin. Lab Interpretation Abnormal (test code = 05046-8) [facility] (NA, K, CL, CO2, GLUCOSE, BUN, CREATININE, CA)2020-03-14 17:28:00 Test Item Value Reference Range Interpretation Comments NA (test code = 136 mmol/L 135-145 7032245772) K (test code = 4.7 mmol/L 3.5-5 8103315294) CL (test code = 99 mmol/L 98-108 1445488942) CO2 TOTAL (test code = 27 mmol/L 23-31 5772741321) AGAP (test code = 2-16 3512407432) BUN (test code = 54 mg/dL 7-23 H 6888923795) GLUCOSE (test code = 95 mg/dL 70-110 5637324285) CREATININE (test code = 2.03 mg/dL 0.6-1.25 H 1313703820) CALCIUM (test code = 9.0 mg/dL 8.6-10.6 8864560427) eGFR Calculation mL/min/1.73m2 (Non-) (test code = 8886743383) eGFR Calculation mL/min/1.73m2 () (test code = 3441192303) NICOLE (test code = NICOLE) Association of [...] tests). Lab Interpretation Abnormal (test code = 20795-2) [facility]"
[2022-06-20] MEDS ORDERED: NA CHLORIDE 0.9% 2,000 ML ONE ×2 (14:56→15:49)
[2022-06-20 15:23] LABS: Protime INR 1.95
[2022-06-20 15:45] LABS: Albumin 1.1 g/dL (3.4-5.0); Bilirubin Direct 0.9 mg/dL (0-0.2); Bilirubin Total 1.1 mg/dL (0.2-1.0); Protein, Total 3.8 g/dL (6.4-8.2)
[2022-06-20 15:48] LABS: Magnesium 1.1 mg/dL (1.6-2.4); Troponin High Sensitivity 419.8 pg/mL (<58.9)
[2022-06-20] MEDS ORDERED: FAMOTIDINE 20 MG/2 ML VIAL IV ONE (16:10)
[2022-06-20] MEDS ORDERED: MAGNESIUM SULFATE 1 gm IVPB 1 GM/100 ML BAG IV ONE ×2 (16:10→17:18)
[2022-06-20] MEDS ORDERED: NA CHLORIDE 0.9% 100 ML ONE (16:10)
[2022-06-20] MEDS ORDERED: KCL 20 MEQ/100 mL IVPB 100 ML IV ONE ×2 (16:10→18:35)
[2022-06-20] MEDS ORDERED: HYDROCORTISONE SUC 100 MG INJ ONE (16:10)
[2022-06-20] MEDS ORDERED: PIPERACIL/TAZO 3.375 GM VIAL IV ONE (16:11)
[2022-06-20 16:14] LABS: SARS-COV-2 RT PCR NEGATIVE (NEGATIVE)
[2022-06-20 16:44] LABS: AST/SGOT 28 U/L (15-37); Albumin 0.9 g/dL (3.4-5.0); Alkaline Phosphatase 113 U/L (45-117); BUN Blood Urea Nitrogen 34 mg/dL (7-18); Bicarbonate 32 mmol/L (21-32); Bilirubin Total 0.8 mg/dL (0.2-1.0); Glomerular Filtration Rate 38 ml/min (=/>90); Glucose Level 69 mg/dL (74-106); Phosphorus 2.5 mg/dL (2.5-4.9); Sodium Level 151 mmol/L (136-145)
[2022-06-20 16:45] LABS: ALT/SGPT < 10 U/L (16-61)
[2022-06-20 16:50] LABS: Arterial Blood Carboxyhemoglob 1.9 % (0-1.5); Blood Gas Oxyhemoglobin 95.5 % (94-97); Blood O2 Saturation 98.8 % (92-98.5)
--- NOTE | 2022-06-20 16:59 | RAD REPORT ---
EXAM DESCRIPTION: RAD - Chest Single View - 06/20/2022 4:52 pm CLINICAL HISTORY: COUGH COMPARISON: No comparisonsChest Single View dated 05/29/2021; Chest Single View dated 05/28/2021; CHEST SINGLE VIEW dated 11/02/2014; CHEST SINGLE VIEW dated 10/30/2014 FINDINGS: Lines: None. Lungs: No alveolar edema or consolidative airspace disease. Pleural: Suspect small pleural effusions bilaterally. Cardiac: Moderate cardiomegaly. Sternotomy. Mediastinum: Within normal limits. Bones: No acute fractures. Other: None IMPRESSION: Small pleural effusions may be on the basis of mild edema.
[2022-06-20 17:02] LABS: Absolute Lymphocytes (CBC) 0.6 K/uL (0.7-4.9); Hematocrit 26.1 % (39.6-49.0); Lymphocytes % 23.4 % (15.3-44.8); MCV 100.6 fL (80-100); RBC Red Blood Cell Count 2.59 M/uL (4.33-5.43)
--- NOTE | 2022-06-20 17:03 | ER ---
Nurse's Notes [facility] Name: Bhavin Mckeon Sr Age: 81 yrs Sex: Male : 1940 Arrival Date: 06/20/2022 Time: 14:50 Bed 4 Private MD: Diagnosis: Dehydration;Hypokalemia;Acute kidney failure, unspecified;Hypomagnesemia;Persistent atrial fibrillation;Cardiomegaly;Hypocalcemia;Hypotension, unspecified;Diarrhea, unspecified;Non ST elevation PA Presentation: 06/20 14:50 Chief complaint: EMS states: Abdominal pain and diarrhea x 2 days per . BP 40-30, hb HR 60s, SpO2 99% on 7LNC home O2, BGL 68. Coronavirus screen: At this time, the client does not indicate any symptoms associated with coronavirus-19. Ebola Screen: No symptoms or risks identified at this time. Initial Sepsis Screen: Does the patient meet any 2 criteria? No. Patient's initial sepsis screen is negative. Does the patient have a suspected source of infection? No. Patient's initial sepsis screen is negative. Risk Assessment: Do you want to hurt yourself or someone else? Patient reports no desire to harm self or others. Onset of symptoms was June 19, 2022. 14:50 Method Of Arrival: EMS: [facility] hb 14:50 Acuity: JACI 1 hb Historical: - Allergies: 15:22 clopidogrel bisulfate; hb - PMHx: 15:22 Chronic obstructive lung disease; Gout; Congestive heart failure; Myocardial hb infarction; Pneumonia; Right hip hematoma; Seizure; - Immunization history:: Adult Immunizations unknown. - Family history:: not pertinent. - Social history:: Smoking status: unknown. Screenin:22 [facility] ED Fall Risk Assessment (Adult) Score/Fall Risk Level 3 or more points = High hb Risk Oriented to surroundings, Maintained a safe environment, Educated pt \\T\\ family on fall prevention, incl call for assistance when getting out of bed. Abuse screen: Denies threats or abuse. Denies injuries from another. Nutritional screening: No deficits noted. Tuberculosis screening: No symptoms or risk factors identified. Assessment: 14:55 General: Appears in no apparent distress. ill, unkempt, cachectic, Behavior is flat. hb Pain: Pain currently is 10 out of 10 on a pain scale. Neuro: Level of Consciousness is confused, lethargic, Oriented to person. Cardiovascular: Patient's skin is warm and dry. Respiratory: Respiratory effort is even, unlabored, Respiratory pattern is regular, symmetrical. GI: Abdomen is non-distended, Reports lower abdominal pain, upper abdominal pain. : No signs and/or symptoms were reported regarding the genitourinary system. EENT: No signs and/or symptoms were reported regarding the EENT system. Derm: pale, dry, scaling, bruising noted to bilateral arms. Musculoskeletal: Range of motion: decreased ROM in bilateral shoulders. 15:16 Reassessment: Dr. Temple at bedside for central line placement. hb 15:40 Reassessment: ERP at bedside providing care. Central line in place, Fluids continued ld1 with pressure bag attached. 16:31 Reassessment: ERP at bedside with patient and providing care. ld1 17:02 Reassessment: Pt cleaned of incontinence, linens and brief changed. Pt tolerated fair. hb 17:25 Reassessment: Dopamine infusion started to R Femoral CVC at 5mcg/kg/min. Mag, KCL, NS, hb and abx continue. Dr. Temple at bedside to discuss POC and code status with . 18:28 Reassessment: and at bedside. hb 19:18 General: Spoke with at the bedside she stated " I no longer want compressions on tw5 him. Clarified that she wants to make her and DNR." Radha Patten PA-C notified of the conversion and the update on the code status that the would like.. 19:20 GI: Abdomen is tender to palpation X 4 quads. Derm: Bruising that is dark purple, on tw5 left arm. Vital Signs: 14:50 BP 50 / 30; Pulse 67; Resp 15; Temp 97.7; Pulse Ox 98% 4 lpm ; Weight 39.92 kg; Height hb 5 ft. 5 in. (165.10 cm); Pain 10/10; 15:02 BP 41 / 28; Pulse 59; Resp 18; Pulse Ox 95% on 4. lpm NC; ld1 15:15 BP 58 / 39; Pulse 74; Resp 23; Pulse Ox 96% on 4 lpm NC; ld1 15:20 BP 61 / 38; Pulse 66; Resp 19; Pulse Ox 95% on 4 lpm NC; ld1 15:30 BP 65 / 41; Pulse 65; Resp 17; Pulse Ox 99% on 4 lpm NC; ld1 15:35 BP 61 / 39; Pulse 68; Resp 18; Pulse Ox 98% on 4 lpm NC; ld1 15:40 BP 62 / 34; Pulse 74; Resp 15; Pulse Ox 95% on 4 lpm NC; ld1 15:51 BP 70 / 41; Pulse 68; Resp 20; Pulse Ox 95% on 4 lpm NC; ld1 15:56 BP 70 / 43; Pulse 71; Resp 18; Pulse Ox 100% on 4 lpm NC; ld1 16:08 BP 68 / 46; Pulse 68; Resp 19; Pulse Ox 100% on 4 lpm NC; hb 16:15 BP 80 / 60; Pulse 67; Resp 18; Pulse Ox 100% on 4 lpm NC; ld1 16:20 BP 59 / 39; Pulse 71; Resp 2; Pulse Ox 95% on 4 lpm NC; ld1 16:31 BP 63 / 47; Pulse 68; Resp 16; Pulse Ox 95% on 4 lpm NC; ld1 16:42 BP 80 / 44; Pulse 63; Resp 18; Pulse Ox 98% on 4 lpm NC; ld1 17:00 BP 60 / 42; Pulse 71; Resp 15; Pulse Ox 99% on 4 lpm NC; hb 17:15 BP 68 / 46; Pulse 71; hb 17:16 Weight 46.27 kg; eb 17:30 BP 70 / 52; Pulse 71; hb 17:45 BP 77 / 59; Pulse 86; hb 18:00 BP 73 / 56; Pulse 85; Resp 18; Pulse Ox 97% on 4 lpm NC; hb 18:15 BP 81 / 51; Pulse 88; hb 18:30 BP 85 / 52; Pulse 84; hb 18:45 BP 99 / 59; Pulse 82; hb 19:08 BP 99 / 66; Pulse 83; Pulse Ox 94% on 4 lpm NC; tw5 17:16 Body Mass Index 16.97 (46.27 kg, 165.10 cm) eb ED Course: 14:50 Patient arrived in ED. eb 14:57 Jose Temple MD is Attending Physician. alba 15:00 Inserted saline lock: 22 gauge in right hand, using aseptic technique. Blood collected. ld1 15:21 Triage completed. hb 15:22 Arm band placed on. hb 15:34 Carmella Santos, RN is Primary Nurse. hb 15:50 Assisted provider with central line placement. Set up central line tray. Triple lumen ld1 line placed in right femoral. Line placed by Jose Temple MD Placement verified by blood return, Dressed with Tegaderm, Blood was collected. Patient tolerated well. 15:54 COVID-19/FLU A+B Sent. ld1 15:56 Arelis Gonzales, PETER is Primary Nurse. ld1 16:04 Magana cath inserted, using sterile technique, 16 Fr., by police or patrol park officer, balloon inflated, to hb gravity drainage, urine specimen collected. 16:42 Patient has correct armband on for positive identification. Placed in gown. Bed in low ld1 position. Call light in reach. Side rails up X2. associate field service engineer on. Pulse ox on. NIBP on. Warm blanket given. Pillow given. Head of bed elevated. Cleaned of incontinence. Linen changed. 16:53 XRAY Chest (1 view) In Process Unspecified. EDMS 17:00 Twila Epstein MD is Hospitalizing Provider. [facility] 17:04 CT Chest Abdomen Pelvis W/O Contrast In Process Unspecified. EDMS 19:04 Pelvis XRAY In Process Unspecified. EDMS 19:11 role handed off by Carmella Santos, PETER mw2 Administered Medications: 14:55 Drug: NS 0.9% 1000 ml Route: IV; Rate: 1 bolus; Site: right wrist; hb 15:45 Follow up: Response: No adverse reaction; IV Status: Completed infusion; IV Intake: hb 1000ml 15:01 Drug: NS 0.9% 1000 ml Route: IV; Rate: 1 bolus; Site: left wrist; hb 15:32 Follow up: Response: No adverse reaction; IV Status: Completed infusion; IV Intake: hb 1000ml 15:54 Not Given (Other Intervention Used): NS 0.9% 1000 ml IV at 125 ml/hr continuous ld1 15:59 Drug: Viscous Lidocaine Liquid (4 %) 5 ml Route: Mucous Membrane; ld1 17:00 Follow up: Response: No adverse reaction ld1 16:02 Not Given (Other Intervention Used): NS 0.9% 1000 ml IV at 1 bolus Per protocol; 1000 ld1 mL bolus 16:20 Drug: Potassium Chloride 20 mEq Route: IV; Rate: per protocol; Site: right femoral; hb 16:28 Drug: Magnesium Sulfate 1 grams Route: IVPB; Infused Over: 1 hrs; Site: right femoral; ld1 17:32 Follow up: Response: No adverse reaction; IV Status: Completed infusion; IV Intake: hb 100ml 16:29 Drug: Pepcid (famotidine) 20 mg Route: IVP; Site: right wrist; ld1 17:02 Follow up: Response: No adverse reaction hb 16:29 Drug: Solu-CORTEF (hyrdoCORTISONE) 100 mg Route: IVP; Site: right femoral; ld1 17:02 Follow up: Response: No adverse reaction hb 16:30 Drug: Zosyn (piperacillin-tazobactam) 3.375 grams Route: IVPB; Infused Over: 60 mins; hb Site: right femoral; 17:32 Follow up: Response: No adverse reaction; IV Status: Completed infusion; IV Intake: hb 100ml 17:23 Drug: DOPamine 5 mcg/kg/min Route: IV; Rate: per protocol; Site: right femoral; hb 19:08 Follow up: Rate change 12 mcg/kg/min tw5 17:24 Drug: vancoMYCIN 800 mg Route: IVPB; Infused Over: 2 hrs; Site: right femoral; hb 17:27 Drug: Magnesium Sulfate 1 grams Route: IVPB; Infused Over: 1 hrs; Site: right femoral; ld1 18:36 Follow up: Response: No adverse reaction; IV Intake: 100ml hb 17:39 CANCELLED (Duplicate Order): NS 0.9% (30 ml/kg) 30 ml/kg IV at bolus once; Sepsis ld1 Protocol 18:21 Drug: NS 0.9% 500 ml Route: IV; Rate: bolus; Site: right femoral; ld1 Medication: 17:26 VIS not applicable for this client. hb Intake: 15:32 IV: 1000ml; Total: 1000ml. hb 15:45 IV: 1000ml; Total: 2000ml. hb 17:32 IV: 100ml; Total: 2100ml. hb 17:32 IV: 100ml; Total: 2200ml. hb 18:36 IV: 100ml; Total: 2300ml. hb Outcome: 17:02 Decision to Hospitalize by Provider. alba 19:20 Admitted to ICU Report called to Attempted to call Surgio RN on ICU. Was told nurse is tw5 currently busy and will call back. 19:20 critical 19:20 Discharge instructions given to family, Instructed on the need for admit. 19:46 Patient left the ED. tw5 Signatures: Dispatcher [employer] EDJose Mallory MD MD cha Baxter, Heather, RN RN Grace DoriLesvia mw2 Abbey Pineda Lauren, RN RN 1 Liliya He tw5 Corrections: (The following items were deleted from the chart) 15:56 15:51 BP 70 / 41; Pulse 68bpm; Resp 20bpm; Pulse Ox 95% RA; ld1 ld1 15:56 15:35 BP 61 / 39; Pulse 68bpm; Resp 18bpm; Pulse Ox 98% RA; ld1 ld1 15:56 15:30 BP 65 / 41; Pulse 65bpm; Resp 17bpm; Pulse Ox 99% RA; ld1 ld1 15:56 15:20 BP 61 / 38; Pulse 66bpm; Resp 19bpm; Pulse Ox 95% RA; ld1 ld1 15:56 15:02 BP 41 / 28; Pulse 59bpm; Resp 18bpm; Pulse Ox 95% RA; ld1 ld1 15:56 15:15 BP 58 / 39; Pulse 74bpm; Resp 23bpm; Pulse Ox 96% RA; ld1 ld1 15:56 15:40 BP 62 / 34; Pulse 74bpm; Resp 15bpm; Pulse Ox 95% RA; ld1 ld1 17:39 15:00 NS 0.9% (30 ml/kg) 30 ml/kg IV at bolus in right hand ld1 ld1
--- NOTE | 2022-06-20 17:03 | EDPHYS ---
Physician Documentation [facility] Name: Bhavin Mckeon Sr Age: 81 yrs Sex: Male : 1940 Arrival Date: 06/20/2022 Time: 14:50 Bed 4 Private MD: ED Physician Jose Temple HPI: 06/20 16:42 This 81 yrs old Male presents to ER via EMS with complaints of Abdominal alba Pain, DIARRHEA AND HYPOTENSION. 16:42 The patient presents with abdominal pain in the upper abdomen, in the lower abdomen. alba Onset: The symptoms/episode began/occurred 3 day(s) ago. The patient presents to the emergency department with diarrhea, that is continuous. Onset: The symptoms/episode began/occurred 2 day(s) ago. Possible causes: unknown. The symptoms are aggravated by nothing. The symptoms are alleviated by nothing. WEAK, ALTERED , HYPOTENSION. The patient presents with decreased mental status, decreased responsiveness. Possible causes: low blood sugar, sepsis. Associated signs and symptoms: Pertinent positives: abdominal pain, confusion, diarrhea, weakness. Historical: - Allergies: 15:22 clopidogrel bisulfate; hb - PMHx: 15:22 Chronic obstructive lung disease; Gout; Congestive heart failure; Myocardial hb infarction; Pneumonia; Right hip hematoma; Seizure; - Immunization history:: Adult Immunizations unknown. - Family history:: not pertinent. - Social history:: Smoking status: unknown. ROS: 16:42 ENT: Positive for DRY MM. alba 16:42 Cardiovascular: 16:42 Abdomen/GI: Positive for abdominal pain, diarrhea, abdominal cramps. 16:42 MS/extremity: Positive for decreased range of motion, of the right leg and left leg, WEAKNESS, CACHETIC, WASTED APPEARING MALE. 16:42 Skin: Positive for pallor. Exam: 16:42 Cardiovascular: Rate: normal, actual rate is 63 bpm, Rhythm: irregularly irregular, alba Pulses: Pulses are 1+ in bilateral radial, brachial, femoral, popliteal, posterior tibial and and dorsalis pedis arteries.. Heart sounds: normal, Edema: is not appreciated, JVD: is not appreciated. 16:42 ECG was reviewed by the Attending Physician. Vital Signs: 14:50 BP 50 / 30; Pulse 67; Resp 15; Temp 97.7; Pulse Ox 98% 4 lpm ; Weight 39.92 kg; Height hb 5 ft. 5 in. (165.10 cm); Pain 10/10; 15:02 BP 41 / 28; Pulse 59; Resp 18; Pulse Ox 95% on 4. lpm NC; ld1 15:15 BP 58 / 39; Pulse 74; Resp 23; Pulse Ox 96% on 4 lpm NC; ld1 15:20 BP 61 / 38; Pulse 66; Resp 19; Pulse Ox 95% on 4 lpm NC; ld1 15:30 BP 65 / 41; Pulse 65; Resp 17; Pulse Ox 99% on 4 lpm NC; ld1 15:35 BP 61 / 39; Pulse 68; Resp 18; Pulse Ox 98% on 4 lpm NC; ld1 15:40 BP 62 / 34; Pulse 74; Resp 15; Pulse Ox 95% on 4 lpm NC; ld1 15:51 BP 70 / 41; Pulse 68; Resp 20; Pulse Ox 95% on 4 lpm NC; ld1 15:56 BP 70 / 43; Pulse 71; Resp 18; Pulse Ox 100% on 4 lpm NC; ld1 16:08 BP 68 / 46; Pulse 68; Resp 19; Pulse Ox 100% on 4 lpm NC; hb 16:15 BP 80 / 60; Pulse 67; Resp 18; Pulse Ox 100% on 4 lpm NC; ld1 16:20 BP 59 / 39; Pulse 71; Resp 2; Pulse Ox 95% on 4 lpm NC; ld1 16:31 BP 63 / 47; Pulse 68; Resp 16; Pulse Ox 95% on 4 lpm NC; ld1 16:42 BP 80 / 44; Pulse 63; Resp 18; Pulse Ox 98% on 4 lpm NC; ld1 17:00 BP 60 / 42; Pulse 71; Resp 15; Pulse Ox 99% on 4 lpm NC; hb 17:15 BP 68 / 46; Pulse 71; hb 17:16 Weight 46.27 kg; eb 17:30 BP 70 / 52; Pulse 71; hb 17:45 BP 77 / 59; Pulse 86; hb 18:00 BP 73 / 56; Pulse 85; Resp 18; Pulse Ox 97% on 4 lpm NC; hb 18:15 BP 81 / 51; Pulse 88; hb 18:30 BP 85 / 52; Pulse 84; hb 18:45 BP 99 / 59; Pulse 82; hb 19:08 BP 99 / 66; Pulse 83; Pulse Ox 94% on 4 lpm NC; tw5 17:16 Body Mass Index 16.97 (46.27 kg, 165.10 cm) eb Procedures: 16:53 Central Line: the site was prepped with Betadine, in sterile fashion, a triple lumen alba catheter was inserted, in the right femoral vein, in 2 attempts. placement was verified, by blood return, the site was dressed with using sterile technique, the patient tolerated the procedure, well. MDM: 14:57 Patient medically screened. alba 17:05 Differential Diagnosis altered mental status, sepsis, flu. Differential Diagnosis: alba electrolyte abnormality, hypoglycemia, pneumonia, sepsis, UTI, volume depletion. Differential diagnosis: Nonspecific abd pain, gastritis, pancreatitis, appendicitis, diverticulitis, viral gastroenteritis, gastroenteritis, bowel obstruction, cholecystitis, Cholelithiasis, diverticulitis, gastritis, GI Bleed, sympomatic leaking abdominal aortic aneurysm, Mesenteric ischemia or infarction, non-specific abd pain, pancreatitis, Peptic Ulcer Disease, Peritonitis, Pyelonephritis, urinary tract infection. Data reviewed: vital signs, nurses notes, EMS record, old medical records, lab test result(s), EKG, radiologic studies, CT scan, plain films. Consideration of Admission/Observation Patient was admitted/placed on observation. I considered the following discharge prescriptions or medication management in the emergency department Medications were administered in the Emergency Department. See MAR. Independent interpretation of the following test(s) in the Emergency Department EKG: See my EKG interpretation above. Test considered but Not performed: Ultrasound NO ABD US. Historians other than the Patient: Spouse/Significant Other: IN ROOM , PT WAS EATING NORMALLY YESTERDAY. 06/20 15:01 Order name: Basic Metabolic Panel; Complete Time: 16:20 06/20 15:01 Order name: CBC with Diff; Complete Time: 18:37 06/20 15:01 Order name: LFT's; Complete Time: 16:20 06/20 15:01 Order name: Magnesium; Complete Time: 16:20 06/20 15:01 Order name: NT PRO-BNP; Complete Time: 16:20 06/20 15:01 Order name: PT-INR; Complete Time: 15:58 06/20 15:01 Order name: Troponin HS; Complete Time: 16:20 06/20 15:01 Order name: Blood Culture Adult (2) 06/20 15:01 Order name: Fecal Leukocyte Stain [facility] 06/20 15:01 Order name: Stool Culture [facility] 06/20 15:01 Order name: Lactate w/ 2H reflex if indic.; Complete Time: 15:58 [facility] 06/20 15:01 Order name: COVID-19/FLU A+B; Complete Time: 16:20 [facility] 06/20 15:02 Order name: Type And Screen; Complete Time: 18:37 [facility] 06/20 15:57 Order name: ABG; Complete Time: 18:37 [facility] 06/20 15:01 Order name: XRAY Chest (1 view); Complete Time: 18:37 [facility] 06/20 15:01 Order name: CT Chest Abdomen Pelvis W/O Contrast; Complete Time: 18:37 [facility] 06/20 15:59 Order name: Comprehensive Metabolic Panel; Complete Time: 16:57 [facility] 06/20 16:00 Order name: Phosphorus; Complete Time: 16:57 [facility] 06/20 16:57 Order name: AMMONIA; Complete Time: 18:37 [facility] 06/20 17:04 Order name: CDIFF [facility] 06/20 17:53 Order name: Manual Differential EDVT 06/20 18:10 Order name: Pelvis XRAY; Complete Time: 19:16 06/20 15:01 Order name: EKG; Complete Time: 15:02 [facility] 06/20 15:01 Order name: Cardiac monitoring; Complete Time: 15:23 [facility] 06/20 15:01 Order name: EKG - Nurse/Tech; Complete Time: 16:48 [facility] 06/20 15:01 Order name: IV Saline Lock; Complete Time: 15:23 [facility] 06/20 15:01 Order name: Labs collected and sent; Complete Time: 15:23 [facility] 06/20 15:01 Order name: O2 Per Protocol; Complete Time: 15:23 [facility] 06/20 15:01 Order name: O2 Sat Monitoring; Complete Time: 15:23 [facility] 06/20 15:01 Order name: IV Saline Lock - Large Bore; Complete Time: 15:23 [facility] 06/20 15:58 Order name: Central Line Kit; Complete Time: 15:58 [facility] 06/20 15:58 Order name: Magana; Complete Time: 16:32 alba EC:42 Rate is 72 beats/min. Rhythm is irregularly irregular. QRS [place] is Normal. [place] interval alba is normal. QRS interval is normal. QT interval is normal. No Q waves. T waves are Normal. ST Segment is depressed in leads V4, V5, V6. Clinical impression: Atrial Fibrillation. Interpreted by me. Reviewed by me. Administered Medications: 14:55 Drug: NS 0.9% 1000 ml Route: IV; Rate: 1 bolus; Site: right wrist; hb 15:45 Follow up: Response: No adverse reaction; IV Status: Completed infusion; IV Intake: hb 1000ml 15:01 Drug: NS 0.9% 1000 ml Route: IV; Rate: 1 bolus; Site: left wrist; hb 15:32 Follow up: Response: No adverse reaction; IV Status: Completed infusion; IV Intake: hb 1000ml 15:54 Not Given (Other Intervention Used): NS 0.9% 1000 ml IV at 125 ml/hr continuous ld1 15:59 Drug: Viscous Lidocaine Liquid (4 %) 5 ml Route: Mucous Membrane; ld1 17:00 Follow up: Response: No adverse reaction ld1 16:02 Not Given (Other Intervention Used): NS 0.9% 1000 ml IV at 1 bolus Per protocol; 1000 ld1 mL bolus 16:20 Drug: Potassium Chloride 20 mEq Route: IV; Rate: per protocol; Site: right femoral; hb 16:28 Drug: Magnesium Sulfate 1 grams Route: IVPB; Infused Over: 1 hrs; Site: right femoral; ld1 17:32 Follow up: Response: No adverse reaction; IV Status: Completed infusion; IV Intake: hb 100ml 16:29 Drug: Pepcid (famotidine) 20 mg Route: IVP; Site: right wrist; ld1 17:02 Follow up: Response: No adverse reaction hb 16:29 Drug: Solu-CORTEF (hyrdoCORTISONE) 100 mg Route: IVP; Site: right femoral; ld1 17:02 Follow up: Response: No adverse reaction hb 16:30 Drug: Zosyn (piperacillin-tazobactam) 3.375 grams Route: IVPB; Infused Over: 60 mins; hb Site: right femoral; 17:32 Follow up: Response: No adverse reaction; IV Status: Completed infusion; IV Intake: hb 100ml 17:23 Drug: DOPamine 5 mcg/kg/min Route: IV; Rate: per protocol; Site: right femoral; hb 19:08 Follow up: Rate change 12 mcg/kg/min tw5 17:24 Drug: vancoMYCIN 800 mg Route: IVPB; Infused Over: 2 hrs; Site: right femoral; hb 17:27 Drug: Magnesium Sulfate 1 grams Route: IVPB; Infused Over: 1 hrs; Site: right femoral; ld1 18:36 Follow up: Response: No adverse reaction; IV Intake: 100ml hb 17:39 CANCELLED (Duplicate Order): NS 0.9% (30 ml/kg) 30 ml/kg IV at bolus once; Sepsis ld1 Protocol 18:21 Drug: NS 0.9% 500 ml Route: IV; Rate: bolus; Site: right femoral; ld1 Disposition: 17:07 Critical Care:. alba Disposition Summary: 06/20/22 17:02 Hospitalization Ordered Hospitalization Status: Inpatient Admission alba Provider: Twila Epstein cha Location: Intensive Care Unit alba Condition: Serious alba Problem: new alba Symptoms: have improved alba Bed/Room Type: Standard alba Room Assignment: 7-(06/20/22 19:12) dw Diagnosis - Dehydration alba - Hypokalemia alba - Acute kidney failure, unspecified alba - Hypomagnesemia alba - Persistent atrial fibrillation alba - Cardiomegaly alba - Hypocalcemia alba - Hypotension, unspecified alba - Diarrhea, unspecified alba - Non ST elevation [place] alba Forms: - Medication Reconciliation Form alba - SBAR form alba Critical care time excluding procedures: 17:07 Critical care time: Bedside Care: 45 minutes, Consultation: 15 minutes, Family alba Intervention: 10 minutes. Total time: 70 minutes Signatures: Dispatcher [employer] EDLorenza Maxwell RN RN dw Anderson, Corey, MD MD cha Baxter, Heather, RN RN Arelis Gonzales RN RN [email or web address] Tamera Patten PA-C PA-C sb4 Liliya He tw5 Corrections: (The following items were deleted from the chart) 17:39 15:50 NS 0.9% (30 ml/kg) 30 ml/kg IV at bolus once; Sepsis Protocol ordered. ld1 ld1 17:39 15:50 NS 0.9% (30 ml/kg) 30 ml/kg IV at bolus once; Sepsis Protocol given. ld1 ld1 17:39 17:39 NS 0.9% (30 ml/kg) 30 ml/kg IV at bolus once; Sepsis Protocol ordered. ld1 ld1 17:56 17:53 CBC Smear Scan ordered. EDMS EDMS 19:12 17:02 alba dw
[2022-06-20] MEDS ORDERED: DOPAMINE/D5W 400 MG/250 ML BAG IV ONE (17:17)
[2022-06-20] MEDS ORDERED: VANCOMYCIN 1 GM/VIAL ONE (17:18)
[2022-06-20] MEDS ORDERED: NA CHLORIDE 0.9% 500 ML ONE (17:18)
--- NOTE | 2022-06-20 17:21 | RAD REPORT ---
EXAM DESCRIPTION: CTChest Abd Pelvis Wo Con - 06/20/2022 5:03 pm CLINICAL HISTORY: ABD PAIN COMPARISON: THORAX WO CONTRAST dated 10/31/2014 TECHNIQUE: CT of the chest, abdomen, and pelvis was performed without IV contrast. All CT scans are performed using dose optimization technique as appropriate and may include automated exposure control or mA/KV adjustment according to patient size. FINDINGS: Thorax: Chest Wall: No abnormal mass Lungs: Dependent atelectasis as well as subpleural thickening likely related to presence of chronic p leural effusions. A few scattered areas of nodularity identified such as in the right upper lobe on i mage 25, series 202. Secretions and/or mucoid impacted lower lobe airways noted. Pleura: Small bilateral pleural effusions. Paty/Mediastinum: No lymphadenopathy. Aorta/Pulmonary Arteries: Atherosclerosis. Heart: Moderate cardiomegaly. Coronary artery calcifications. Abdomen/Pelvis: Liver: No acute abnormality or suspicious lesions. Biliary: No biliary ductal dilatation. Stomach: Gastric wall thickening is diffuse. Duodenum: Duodenal wall thickening. Pancreas: No significant abnormality. Spleen: No significant abnormality. Adrenal: No suspicious lesions. Kidney/ureter: No hydronephrosis. Bilateral renal lesions, some of which are consistent with cysts wh ile others are likely hyperdense cysts. Retroperitoneum: No retroperitoneal adenopathy. Vascular: Status post infrarenal abdominal aortic aneurysm repair. Aorto bi-iliac graft present. The aneurysm sac measures 4.8 cm. Bowel: Diffuse colonic wall thickening and small bowel wall thickening noted.. Peritoneum: Moderate ascites. Bladder: Magana catheter within the bladder. Reproductive: Grossly unremarkable Bones: No acute fracture. Degenerative changes are present at both of the hips. Multilevel degenerati ve changes are present in the spine. Other: n/a IMPRESSION: 1. Chronic appearing bilateral effusions with underlying pleural thickening which is lik sky reactive. A few nondescript areas of nodularity noted could reflect mild infection or inflammatio n. 2. Diffuse bowel wall thickening including the colon, stomach, and small bowel may be related to unde rlying fluid status. 3. Anasarca including body wall edema, moderate ascites, pleural effusions.
[2022-06-20 17:52] LABS: Blood Morphology Comment NOT SEEN (NOT SEEN); Platelet Estimate DECR
[2022-06-20] MEDS ORDERED: CALCIUM GLUC 10% INJ 9.3 MEQ in NA CHLORIDE 0.9% 100 ML IV ONE (18:32)
--- NOTE | 2022-06-20 19:13 | RAD REPORT ---
EXAM DESCRIPTION: RAD - Pelvis - 06/20/2022 7:02 pm CLINICAL HISTORY: CHECK LINE PLACEMENT COMPARISON: None FINDINGS/IMPRESSION: Right femoral approach central line with tip overlying the tip overlying the ri ght aspect of the sacrum. This overlies the expected location of the right common iliac vein. No frac tures identified. Aorto bi-iliac stent graft.
[2022-06-20] MEDS ORDERED: DOPAMINE/D5W 400 MG/250 ML BAG IV SCH (19:37)
[2022-06-20] MEDS ORDERED: ALBUTEROL 2.5 MG/3 ML NEB SOL NEB PRN (19:37)
[2022-06-20] MEDS ORDERED: Magnesium Sulfate 2gm IVPB 2 G/50 ML BAG IV ONE (19:37)
[2022-06-20] MEDS ORDERED: NA CHLORIDE 0.9% 1,000 ML IV SCH (19:37)
[2022-06-20] MEDS ORDERED: ALBUMIN HUMAN 25% 200 ML IV ONE (19:37)
--- NOTE | 2022-06-20 19:59 | P.HP ---
Certification for Inpatient Patient admitted to: Inpatient With expected LOS: >2 Midnights Patient will require the following post-hospital care: None Practitioner: I am a practitioner with admitting privileges, knowledge of patient current condition, hospital course, and medical plan of care. Services: Services provided to patient in accordance with Admission requirements found in Title 42 Section 412.3 of the Code of Federal Regulations Patient History Date of Service: 06/20/22 Reason for admission: Septic shock History of Present Illness: Patient is an 81-year-old gentleman who presents to the hospital with a few days of diarrhea. Patient has been bed-bound for the last few years according to the . She states she does most of his ADLs. Patient has been declining over the last few days with diarrhea. He did really notice he was as sick as he was thus she noticed a new getting more short of breath. He thought it was related to his COPD. She brought him into the hospital and patient was found to be in septic shock. Patient was bolused few L of IV fluids by the emergency room physician and started on IV antibiotics. Patient was given IV hydrocortisone as well. patient blood pressure has stabilized. Patient currently on IV dopamine. Had extensive talk with the and made her aware that it was unlikely he was to survive. She does not want him intubated. The spoke to our PA later in the evening and she made them aware that she did not want him resuscitated. Patient also with pancytopenia most likely related to sepsis. Patient's long-term prognosis is poor. Will continue with current care will discuss with family regarding palliative care if there is no significant improvement over the next 24-48 hours. Patient follows up with Dr. Min who does most of patient's specialty care as well. Patient has a longstanding history of COPD. Patient was in the hospital couple years ago at [facility] according to the . He was in the hospital for a little over a week. Patient otherwise has slowly declined over the last couple of years and does not ambulate anymore. The does most of his ADLs but he does feed himself. He was feeding himself up until yesterday. Allergies clopidogrel bisulfate [From Plavix] Allergy (Verified 10/29/14 09:58) Unknown Home Medications: Aspirin [Low Dose Aspirin EC] 81 mg PO DAILY 10/28/14 Pravastatin [Pravachol*] 80 mg PO DAILY 10/28/14 allopurinoL [Zyloprim*] 300 mg PO DAILY 10/28/14 Budesonide/Formoterol Fumarate [Symbicort 160-4.5 Mcg Inhaler] 2 puff IH BID #1 hfa.aer.ad 05/29/21 Docusate [Colace Cap*] 100 mg PO DAILY #30 cap 05/29/21 Ferrous Sulfate [Iron] 325 mg PO BID #60 tablet 05/29/21 Levalbuterol Tartrate [Xopenex Hfa] 1 puff IH TID PRN #1 hfa.aer.ad 05/29/21 Pantoprazole [Protonix Tab*] 40 mg PO BID tab 05/29/21 Torsemide [Demadex*] 60 mg PO BID #180 tab 05/29/21 carvediloL [Coreg*] 3.125 mg PO BID 6AM 6PM #60 tab 05/29/21 levETIRAcetam [Keppra*] 500 mg PO BID tab 05/29/21 predniSONE [Deltasone*] 10 mg PO SEECOM #21 tab 05/29/21 - Past Medical/Surgical History Diabetic: No -: History of CVA -: COPD on chronic oxygen -: Diastolic CHF -: Gout -: Hyperlipidemia -: Carotid arterial disease with prior surgery -: CAD with prior CABG -: Hyperlipidemia -: Hypertension -: GERD -: Peripheral vascular disease -: Seizure disorder -: CABG x2 vessel -: Spinal surgery -: Hernia repair -: Abdominal aortic aneurysm repair -: Bilateral carotid enterectomy Psychosocial/ Personal History: 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 Uses diapers - Family History Father Family History: Reviewed- Non-Contributory - Social History Smoking Status: Former smoker Alcohol use: No CD- Drugs: No Caffeine use: Yes Review of Systems is unable to be obtained Physical Examination - Vital Signs Temperature: 95 F Blood Pressure: 90/60 Pulse: 90 Respirations: 14 Pulse Ox (%): 89 - Physical Exam General: Severe distress, Confused HEENT: Atraumatic, Normocephalic Neck: Supple, JVD not distended Respiratory: Diminished, Expiratory wheezes Cardiovascular: Regular rate/rhythm, Normal S1 S2, Systolic murmur Gastrointestinal: Normal bowel sounds, Soft and benign, Non-distended Musculoskeletal: No clubbing, No swelling Integumentary: No rashes Neurological: Abnormal gait, Abnormal speech, Abnormal strength, Abnormal sensation, Abnormal cranial nerve function - Studies Laboratory Data (last 24 hrs) 06/20/22 16:54: WBC 2.60 L, Hgb 8.4 L, Hct 26.1 L, Plt Count 54 L 06/20/22 16:17: Sodium 151 H, Potassium 2.0 L*, BUN 34 H, Creatinine 1.78 H, Glucose 69 L, Phosphorus 2.5, Total Bilirubin 0.8, AST 28, ALT < 10 L, Alkaline Phosphatase 113 D 06/20/22 15:10: PT 21.4 H, INR 1.95 06/20/22 15:10: Sodium 150 H, Potassium 2.0 L*, BUN 37 H, Creatinine 2.12 H, Glucose 79, Magnesium 1.1 L*, Total Bilirubin 1.1 H, AST 39 H, ALT 11 L, Alkalin e Phosphatase 144 H Assessment & Plan - Problems (Diagnosis) (1) Septic shock Current Visit: Yes Status: Acute (2) Hypocalcemia Current Visit: Yes Status: Acute (3) Hypomagnesemia Current Visit: Yes Status: Acute (4) Hypokalemia Current Visit: Yes Status: Acute (5) Lactic acidosis Current Visit: Yes Status: Acute (6) CONRAD (acute kidney injury) Current Visit: Yes Status: Acute (7) COPD (chronic obstructive pulmonary disease) Onset Date: 10/29/14 Current Visit: No Status: Acute (8) Pancytopenia Current Visit: Yes Status: Acute (9) Coagulopathy Current Visit: Yes Status: Acute (10) Hypoalbuminemia Current Visit: Yes Status: Acute (11) Anasarca Current Visit: Yes Status: Acute - Plan Plan: 1. continue with IV antibiotic therapy; patient met criteria for sepsis. patient may be in the ICU as well with coagulopathy. Additional labs will be checked in the morning. 2. prognosis is poor; DNAR- if no significant improvement over the next 24-48 hours we should consider palliative or hospice care 3. continue vasopressor support 4. Hydrocortisone IV q.12 hours 5. Nebs q.6 6. Monitor electrolytes closely 7. Monitor renal function closely 8. Repeat CBCs; patient with bone marrow suppression most likely related to sepsis 9. Severe malnutrition most likely related to poor nutrition. Patient with diffuse muscular atrophy as well. Discharge Plan: Home Plan to discharge in: Greater than 2 days - Advance Directives Does patient have a Living Will: No Does patient have a Durable POA for Healthcare: Yes - Code Status/Comfort Care Code Status Assessed: Yes Code Status: Do Not Attempt Resuscitat Critical Care: Yes Time Spent Managing PTS Care (In Minutes): 55
[2022-06-20] MEDS ORDERED: VANCOMYCIN 1 GM in NA CHLORIDE 0.9% 250 ML IVPB SCH ×2 (20:00→22:00)
[2022-06-20] MEDS ORDERED: POTASSIUM CL 40 MEQ in NA CHLORIDE 0.9% 500 ML IV SCH (20:00)
[2022-06-20] MEDS ORDERED: D5W 1,000 ML IV SCH (21:00)
[2022-06-20 21:28] LABS: Magnesium 1.8 mg/dL (1.6-2.4)
[2022-06-20 21:29] LABS: Potassium 2.7 mmol/L (3.5-5.1); Troponin High Sensitivity 478.4 pg/mL (<58.9)
[2022-06-20] MEDS: KCL 20 MEQ/100 mL IVPB 100 ML IV SCH ×2 (21:29→21:30)
[2022-06-20] MEDS ORDERED: CALCIUM GLUCONATE 1 GM IVPB 1 GM/50 ML BAG IV ONE ×2 (21:37→22:03)
--- NOTE | 2022-06-20 22:20 | P.PN ---
Date of Service: 06/20/22 Sepsis reassessment completed at 22:10. <Tamera Patten - Last Filed: 06/20/22 22:19> Sepsis Focused Assessment - Focused Assessment Complete? Sepsis Focused Assessment Completed?: Yes - Sepsis Screen Result Severe Sepsis: Positive Septic Shock: Positive - Evaluation Current stage of sepsis: Septic shock - Vital Signs Temperature: 95 F Heart rate: 90 Blood Pressure: 90/60 Respiratory Rate: 14 O2 Sat by Pulse Oximetry: 89 - Examination Date exam was performed: 06/20/22 Time exam was performed: 22:19 Heart: Irregular rhythm Lungs: Diminished air movement Peripheral pulses: 1+ Faint Peripheral pulse location: Radial Capillary refill: >2 Seconds Skin examination: Other (poor turgor) <Twila Epstein - Last Filed: 06/20/22 23:18>
[2022-06-20] MEDS: MUPIROCIN 2% OINT 22GM TUBE TOP SCH (22:30)
--- NOTE | 2022-06-20 23:28 | P.PN ---
Date of Service: 06/20/22 Pt's last echocardiogram done a year ago showed ejection fraction less than 20%. Patient with severe cardiomyopathy; will repeat echo in AM.
[2022-06-21] MEDS: Meropenem 500 MG in NA CHLORIDE 0.9% 100 ML IV SCH ×2 (00:40→12:39)
[2022-06-21] MEDS: HYDROCORTISONE SUC 100 MG INJ IV SCH ×2 (00:40→08:28)
[2022-06-21] MEDS ORDERED: PIPER TAZO 3.375 GM in NA CHLORIDE 0.9% 100 ML IV SCH (01:00)
[2022-06-21 02:11] VITALS: O2SAT 88
[2022-06-21 05:28] LABS: Absolute Lymphocytes (CBC) 0.5 K/uL (0.7-4.9); Hematocrit 33.2 % (39.6-49.0); Lymphocytes % 11.4 % (15.3-44.8); MCV 102.6 fL (80-100); MPV 9.1 fL (7.6-11.3); RBC Red Blood Cell Count 3.24 M/uL (4.33-5.43)
[2022-06-21 05:30] VITALS: BMI 17.3
[2022-06-21 05:57] LABS: Protime INR 1.85
[2022-06-21 06:16] LABS: ALT/SGPT 14 U/L (16-61); AST/SGOT 45 U/L (15-37); Albumin 1.5 g/dL (3.4-5.0); Alkaline Phosphatase 147 U/L (45-117); BUN Blood Urea Nitrogen 32 mg/dL (7-18); Bicarbonate 28 mmol/L (21-32); Bilirubin Total 1.7 mg/dL (0.2-1.0); Glomerular Filtration Rate 34 ml/min (=/>90); Glucose Level 128 mg/dL (74-106); Magnesium 2.4 mg/dL (1.6-2.4); NT PRO-BNP 26550 pg/mL (<450); Protein, Total 4.4 g/dL (6.4-8.2); Sodium Level 147 mmol/L (136-145)
[2022-06-21 06:33] LABS: Troponin High Sensitivity 447.9 pg/mL (<58.9)
[2022-06-21] MEDS ORDERED: CALCIUM GLUC 10% INJ 4.65 MEQ in NA CHLORIDE 0.9% 100 ML IV ONE (06:56)
[2022-06-21] MEDS ORDERED: CALCIUM GLUCONATE 1 GM IVPB 1 GM/50 ML BAG IV ONE ×2 (07:15→10:00)
[2022-06-21] MEDS: KCL 20 MEQ/100 mL IVPB 20 MEQ/100 ML BAG IV SCH ×2 (07:55→09:42)
[2022-06-21] MEDS ORDERED: INFLUENZA VACCINE (for 6+ mo) 0.5 ML DOSE IMVAC ONE (08:00)
[2022-06-21] MEDS ORDERED: NOREPINEPHRINE BITARTRATE/D5W 4 MG/250 ML BAG IV ONE (08:16)
[2022-06-21] MEDS: NOREPINEPHRINE BITARTRATE/D5W 4 MG/250 ML BAG IV SCH ×2 (08:16→13:16)
[2022-06-21] MEDS: MUPIROCIN 2% OINT 22GM TUBE TOP SCH (08:25)
[2022-06-21] MEDS ORDERED: HYDROCORTISONE SUC 100 MG INJ IV ONE (08:30)
[2022-06-21 10:38] LABS: Phosphorus 3.2 mg/dL (2.5-4.9)
[2022-06-21] MEDS: D5W 1,000 ML IV SCH ×2 (11:44→12:39)
--- NOTE | 2022-06-21 11:47 | P.CNS ---
Date of Consult: 06/21/22 Reason for Consult: Shock Chief Complaint: Septic shock History of Present Illness: Patient is 81 years of age admitted from the hospital he has had diarrhea bedbound decubitus ulcers been getting worse more sick shortness of breath he does have a history of COPD found to be in septic shock history of congestive heart failure on vasopressors currently unresponsive hypotensive seen by a hearing consultant . Allergies clopidogrel bisulfate [From Plavix] Allergy (Verified 10/29/14 09:58) Unknown Home Medications: Aspirin [Low Dose Aspirin EC] 81 mg PO DAILY 10/28/14 Pravastatin [Pravachol*] 80 mg PO DAILY 10/28/14 allopurinoL [Zyloprim*] 300 mg PO DAILY 10/28/14 Budesonide/Formoterol Fumarate [Symbicort 160-4.5 Mcg Inhaler] 2 puff IH BID #1 hfa.aer.ad 05/29/21 Docusate [Colace Cap*] 100 mg PO DAILY #30 cap 05/29/21 Ferrous Sulfate [Iron] 325 mg PO BID #60 tablet 05/29/21 Levalbuterol Tartrate [Xopenex Hfa] 1 puff IH TID PRN #1 hfa.aer.ad 05/29/21 Pantoprazole [Protonix Tab*] 40 mg PO BID tab 05/29/21 Torsemide [Demadex*] 60 mg PO BID #180 tab 05/29/21 carvediloL [Coreg*] 3.125 mg PO BID 6AM 6PM #60 tab 05/29/21 levETIRAcetam [Keppra*] 500 mg PO BID tab 05/29/21 predniSONE [Deltasone*] 10 mg PO SEECOM #21 tab 05/29/21 - Past Medical/Surgical History Diabetic: No -: History of CVA -: COPD on chronic oxygen -: Diastolic CHF -: Gout -: Hyperlipidemia -: Carotid arterial disease with prior surgery -: CAD with prior CABG -: Hyperlipidemia -: Hypertension -: GERD -: Peripheral vascular disease -: Seizure disorder -: CABG x2 vessel -: Spinal surgery -: Hernia repair -: Abdominal aortic aneurysm repair -: Bilateral carotid enterectomy Psychosocial/ Personal History: Patient lives at home. 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 Patient is primarily bedbound. Uses diapers - Family History Father Family History: Reviewed- Non-Contributory - Social History Smoking Status: Unknown if ever smoked Alcohol use: No CD- Drugs: No Caffeine use: Yes Place of Residence: Home Review of Systems is unable to be obtained Physical Examination Temp Pulse Resp BP Pulse Ox 95.2 F L 98 H 24 H 82/67 L 99 06/21/22 09:00 06/21/22 09:45 06/21/22 09:45 06/21/22 09:45 06/21/22 08:15 General: Unresponsive Respiratory: Clear to auscultation bilaterally, Diminished Cardiovascular: No edema, Regular rate/rhythm, Normal S1 S2 Gastrointestinal: Normal bowel sounds, Soft and benign Musculoskeletal: No clubbing Laboratory Data (last 24 hrs) 06/20/22 16:54: WBC 2.60 L, Hgb 8.4 L, Hct 26.1 L, Plt Count 54 L 06/20/22 16:17: Sodium 151 H, Potassium 2.0 L*, BUN 34 H, Creatinine 1.78 H, Glucose 69 L, Phosphorus 2.5, Total Bilirubin 0.8, AST 28, ALT < 10 L, Alkaline Phosphatase 113 D 06/20/22 15:10: PT 21.4 H, INR 1.95 06/20/22 15:10: Sodium 150 H, Potassium 2.0 L*, BUN 37 H, Creatinine 2.12 H, Glucose 79, Magnesium 1.1 L*, Total Bilirubin 1.1 H, AST 39 H, ALT 11 L, Alkaline Phosphatase 144 H - Problems (1) Shock Current Visit: Yes Status: Acute Plan: Patient is 81 years of age admitted with shock last echocardiogram shows severe global hypokinesis ejection fraction of 17% history of COPD stable decubitus ulcers multiple electrolyte abnormalities hyponatremia renal failure agree with broad-spectrum antibiotics increase D5 water correct electrolyte abnormality chest x-ray CT scan reviewed his mild LAD mild bilateral pleural effusion patient is DNR agree with comfort
[2022-06-21] MEDS ORDERED: VASOPRESSIN 80 UNIT in NA CHLORIDE 0.9% 250 ML IV SCH (12:00)
[2022-06-21] MEDS ORDERED: DOPAMINE/D5W 400 MG/250 ML BAG IV SCH (12:15)
[2022-06-21] MEDS ORDERED: Ringers Lactate 500 ML IV ONE ×2 (12:53→13:55)
[2022-06-21] MEDS ORDERED: Ringers Lactate 1,000 ML IV ONE (13:09)
[2022-06-21 14:31] VITALS: BP 68/44; TEMP 97.9
--- NOTE | 2022-06-21 15:54 | P.DS ---
Admission Date: 06/20/22 Discharge Date: 06/21/22 Disposition: Discharge Condition: Reason for Admission: Septic shock Consultations: 1. Pulmonary/Critical Care Medicine 2. Cardiology Hospital Course: DIAGNOSES: # Septic Shock suspect secondary to Infected Sacral Pressure Wounds # Suspect Coinciding Cardiogenic Shock with history of Chronic Systolic Congestive Heart Failure with Reduced Ejection Fraction (LVEF < 20 %) # KDIGO Stage I Acute Kidney Injury on suspected Chronic Kidney Disease Stage III # Suspect Type II Non-ST Segment Elevation Myocardial Infarction (Demand Ischemia) due to above # Pancytopenia suspect due to Bone Marrow Suppression from Septic Shock # Multiple Electrolyte Derangements (Hypernatremia, Hypokalemia, Hypocalcemia, Hypomagnesemia) # Chronic Respiratory Failure secondary to Chronic Obstructive Pulmonary Disease on Home Oxygen # Coronary Artery Disease s/p CABG # History of Cerebrovascular Accident # Carotid Artery Stenosis s/p Bilateral Carotid Endarterectomy # Peripheral Vascular Disease # Seizure Disorder # Hypertension # Hyperlipidemia # Gout # Gastroesophageal Reflux Disease HOSPITAL COURSE: Mr. Bhavin Mckeon was an 81 year old male with a past medical history significant for chronic respiratory failure secondary to COPD, coronary artery disease s/p CABG, prior cerebrovascular accident, carotid artery stenosis s/p bilateral carotid endarterectomy, peripheral vascular disease, seizure disorder, hypertension, and hyperlipidemia who was admitted to the [facility] on 06/20/2022 for septic shock. He was admitted to the Medicine service. Extensive [id number] discussions were held with his , Ms. Rodney. Per Dr. Epstein, she had stated on admission that he would not want to undergo cardiopulmonary resuscitation if it should be required. I took over the Medicine service today, and spoke with Mrs. Rodney multiple times throughout the day. It became evident that Mr. Mckeon was clinically deteriorating despite aggressive medical intervention. Per Mrs. Rodney, she wanted all interventions short of cardiopulmonary resuscitation and endotracheal intubation. This morning, he was on a dopamine drip, without significant improvement in his blood pressures. I reviewed his case with Dr. Singleton, who agreed with adding norepinephrine drip. As these drips were titrated up, his blood pressure still did not improve. Vasopressin was then added and up-titrated, without significant improvement. His case was reviewed again with Dr. Singleton, who stated that any additional drips would be futile to care. We attempted stress-dose steroids as well as additional fluid boluses to assist with his hypotension, without success. After discussion this afternoon with Mrs. Rodney and his daughter, who later arrived at bedside, they were presented with the option of continued plan of care vs comfort-care. They elected to proceed with the current plan of care in hopes that his two children (one from [place] and one from [place]) would be able to make it. It was explained to them that his prognosis was very poor and they verbalized understanding of this. This afternoon, I was called to the bedside to pronounce his . On examination, he did not respond to verbal or physical stimuli. Absent pulse, heart sounds, and spontaneous respirations/breath sounds. Pupils were fixed and dilated. He was pronounced at 15:39 on 06/21/2022. Vital Signs/Physical Exam: Temp Pulse Resp BP Pulse Ox 97.9 F 78 20 68/44 L 99 06/21/22 14:00 06/21/22 14:15 06/21/22 14:15 06/21/22 14:15 06/21/22 08:15 General: Unresponsive HEENT: Atraumatic Respiratory: Other (absent breath sounds) Cardiovascular: Other (no heart sounds) Capillary refill: Other (absent pulses) Musculoskeletal: No clubbing Neurological: Other (unresponsive) Laboratory Data at Discharge: WBC 4.30 K/uL (4.3-10.9) 06/21/22 04:54 Hgb 10.4 g/dL (13.6-17.9) L D 06/21/22 04:54 Hct 33.2 % (39.6-49.0) L 06/21/22 04:54 Plt Count 83 K/uL (152-406) L D 06/21/22 04:54 PT 20.4 SECONDS (9.5-12.5) H 06/21/22 04:54 INR 1.85 06/21/22 04:54 APTT 63.2 SECONDS (24.3-36.9) H 06/21/22 04:54 Sodium 147 mmol/L (136-145) H 06/21/22 04:54 Potassium 3.0 mmol/L (3.5-5.1) L 06/21/22 04:54 BUN 32 mg/dL (7-18) H 06/21/22 04:54 Creatinine 1.97 mg/dL (0.70-1.30) H 06/21/22 04:54 Glucose 128 mg/dL (74-106) H 06/21/22 04:54 Phosphorus Cancelled 06/21/22 Unknown Magnesium Cancelled 06/21/22 05:00 Total Bilirubin 1.7 mg/dL (0.2-1.0) H 06/21/22 04:54 AST 45 U/L (15-37) H 06/21/22 04:54 ALT 14 U/L (16-61) L 06/21/22 04:54 Alkaline Phosphatase 147 U/L (45-117) H D 06/21/22 04:54 Home Medications: Aspirin [Low Dose Aspirin EC] 81 mg PO DAILY 10/28/14 Pravastatin [Pravachol*] 80 mg PO DAILY 10/28/14 allopurinoL [Zyloprim*] 300 mg PO DAILY 10/28/14 Levalbuterol Tartrate [Xopenex Hfa] 1 puff IH TID PRN #1 hfa.aer.ad 05/29/21 Pantoprazole [Protonix Tab*] 40 mg PO BID tab 05/29/21 carvediloL [Coreg*] 3.125 mg PO BID 6AM 6PM #60 tab 05/29/21 levETIRAcetam [Keppra*] 500 mg PO BID tab 05/29/21 Torsemide [Demadex*] 60 mg PO TID 06/21/22 Time spent managing pt's care (in minutes): 50
[2022-06-22] MEDS ORDERED: VANCOMYCIN 1 GM in NA CHLORIDE 0.9% 250 ML IVPB SCH ×2 (05:00→10:00)
--- NOTE | 2022-06-22 08:33 | ECHO ---
HEIGHT: 5 ft 5 in WEIGHT: 104 lb 0.931 oz DATE OF STUDY: 06/21/[address]: Twila Epstein MD 2-DIMENSIONAL: YES M.MODE: YES DOPPLER: YES COLOR FLOW: YES TDS: PORTABLE: YES DEFINITY: BUBBLE STUDY: DIAGNOSIS: CONGESTIVE HEART FAILURE CARDIAC HISTORY: CATHERIZATION: SURGERY: PROSTHETIC VALVE: PACEMAKER: MEASUREMENTS (cm) DIASTOLIC (NORMALS) SYSTOLIC (NORMALS) IVSd 0.9 (0.6-1.2) LA Diam 4.5 (1.9-4.0) LVEF 7% LVIDd 5.0 (3.5-5.7) LVIDs 4.8 (2.0-3.5) %FS 3% LVPWd 1.1 (0.6-1.2) Ao Diam 3.0 (2.0-3.7) 2 DIMENSIONAL ASSESSMENT: RIGHT ATRIUM: ENLARGED LEFT ATRIUM: ENLARGED RIGHT VENTRICLE: DEPRESSED RIGHT VENTRICULAR FUNCTION LEFT VENTRICLE: DEPRESSED EJECTION FRACTION TRICUSPID VALVE: SEVERE TRICUSPID REGURGITATION MITRAL VALVE: MODERATE MITRAL REGURGITATION PULMONIC VALVE: NORMAL AORTIC VALVE: NORMAL PERICARDIAL EFFUSION: NONE AORTIC ROOT: NORMAL LEFT VENTRICULAR WALL MOTION: SEVERE GLOBAL HYPOKINESIS DOPPLER/COLOR FLOW: SEE BELOW COMMENTS: 1. SEVERELY DEPRESSED LEFT VENTRICULAR EJECTION FRACTION LESS THAN 10% 2. SEVERE GLOBAL HYPOKINESIS 3. BI-ATRIAL ENLARGEMENT 4. TORRENTIAL TRICUSPID REGURGITATION (VERY SEVERE) 5. MODERATE MITRAL REGURGITATION 6. MILD RIGHT VENTRICULAR DYSFUNCTION 7. MILD AORTIC INSUFFICIENCY 8. SEVERE PULMONARY HYPERTENSION TECHNOLOGIST: JONELLE [employer]
[2022-06-22] MEDS ORDERED: ENOXAPARIN 30 MG/0.3 ML SQ SCH (09:00)
--- NOTE | 2022-06-22 17:01 | EKG ---
Test Date: 2022-06-20 Test Time: 16:03:23 Taper/Finisher: KLAUDIA MEASUREMENT RESULTS: Intervals: Rate: 72 WA: QRSD: 110 QT: 480 QTc: 525 [place]: P: WA: QRS: 105 T: 251 INTERPRETIVE STATEMENTS: Atrial fibrillation with premature ventricular or aberrantly conducted complexes Incomplete right bundle branch block Possible Right ventricular hypertrophy ST & T wave abnormality, consider inferior ischemia or digitalis effect Prolonged QT Abnormal ECG Compared to ECG 06/20/2022 16:01:41 Possible ischemia now present Right-axis deviation no longer present ST (T wave) deviation still present Electronically Signed On 06-22-22 16:57:37 CENTRALIZED TRAFFIC CONTROL OPERATOR by Juan Otero
== END 2022-06-21 15:18 | disposition expired | DRG 871 ==
LOC: ER 14:39 → ERHOLD 18:56 → 3RD-ICU 19:17
PROVIDERS: ADMIT Hospitalist; ATTEND Internal Medicine
DX: A41.9 Sepsis, unspecified organism (principal); E43 Unspecified severe protein-calorie malnutrition; G92.8 Other toxic encephalopathy; R65.21 Severe sepsis with septic shock; I21.A1 Myocardial infarction type 2; Z68.1 Body mass index [BMI] 19.9 or less, adult; R64 Cachexia; N17.9 Acute kidney failure, unspecified; I48.19 Other persistent atrial fibrillation; D61.818 Other pancytopenia; E87.21 Acute metabolic acidosis; D68.9 Coagulation defect, unspecified; E87.1 Hypo-osmolality and hyponatremia; I50.22 Chronic systolic (congestive) heart failure; I13.0 Hypertensive heart and chronic kidney disease with heart failure and stage 1 through stage 4 chronic kidney disease, or unspecified chronic kidney disease; J96.10 Chronic respiratory failure, unspecified whether with hypoxia or hypercapnia; N18.30 Chronic kidney disease, stage 3 unspecified; E86.0 Dehydration; E87.6 Hypokalemia; E83.51 Hypocalcemia; K21.9 Gastro-esophageal reflux disease without esophagitis; E78.5 Hyperlipidemia, unspecified; E83.42 Hypomagnesemia; J44.9 Chronic obstructive pulmonary disease, unspecified; M10.9 Gout, unspecified; E88.09 Other disorders of plasma-protein metabolism, not elsewhere classified; G40.909 Epilepsy, unspecified, not intractable, without status epilepticus; I73.9 Peripheral vascular disease, unspecified; L89.159 Pressure ulcer of sacral region, unspecified stage; I25.10 Atherosclerotic heart disease of native coronary artery without angina pectoris; I25.2 Old myocardial infarction; R57.0 Cardiogenic shock; Z66 Do not resuscitate; Z95.1 Presence of aortocoronary bypass graft; Z88.8 Allergy status to other drugs, medicaments and biological substances; Z74.01 Bed confinement status; Z86.73 Personal history of transient ischemic attack (TIA), and cerebral infarction without residual deficits; Z79.82 Long term (current) use of aspirin; Z99.81 Dependence on supplemental oxygen; Z79.52 Long term (current) use of systemic steroids; Z87.891 Personal history of nicotine dependence; Z79.899 Other long term (current) drug therapy; Z20.822 Contact with and (suspected) exposure to COVID-19
CPT/HCPCS: 0240U; 36415; 51702; 71045; 71250; 72170; 74176; 80048; 80053; 80076; 82140; 82550; 82607; 82805; 82947; 83540; 83605; 83615; 83735; 83880; 84100; 84145; 84439; 84443; 84484; 85025; 85044; 85379; 85384; 85610; 85730; 86850; 86900; 86901; 87040; 93005; 93306; 99291; 99292; J0610; J1265; J1720; J2543; J3370; J3475; J3480; J7030; J7040; J7050; J7120